=== PATIENT | female | born 1995 | race Two or more races ===

== ENCOUNTER 2024-12-05 10:30 | Outpatient (CLI) | payer OTHER, SELFPAY ==
--- OUTSIDE RECORDS SUMMARY | 2024-10-20 15:48 | XMS_ITS ---
Author Organization [facility] Address [address] [place] [address] Phone Care Team Providers Care Spindle Frame Carver Name Role Phone Donna Call MD Conditions or Problems Problem Name Problem Code Onset Date Status Entry Date Provider Comment Standard Description Annotate Urinalysis, abnormal [id number] (SNOMED CT) Resolved Donna Call MD Abnormal urinalysis [id number] (SNOMED CT) Resolved Donna Call MD Medications No information available. Medications Administered No information available. Allergies, Adverse Reactions, Alerts No information available. Results Date Name Value Unit Range Flag Description Office Visit: 21w2d [ ] [facility] HEL baseline & glucola & EDPS/3rd tri folder QUAD SCREEN yes quad scre en for Down Syndrome, Trisomy-18, and Spina Bifida, maternal serum HGB ELECTRO done hemoglobi n electrophoresis, blood Plan of Care Type Date Detail Appointment 01:00 PM Donna Del Rio, [address] [facility], [place], [phone], Procedures Code Procedure Name Date Entry Date CPT-1week Follow Up in 1 Week CPT-QRC Quick Recheck Vital Signs Date Name Value Unit Description Body Temperature 99.0 [degF] temperat ure E&M Body Temperature 37.22 Mariya temperat ure in centigrade E&M BP Diastolic 82 mm[Hg] blood pressu re, diastolic BP Diastolic 82 blood pressu re, diastolic, repeated by physician BP Diastolic 82 mm[Hg] blood pressu re, diastolic, second observation BP Systolic 130 mm[Hg] blood pressur e, systolic BP Systolic 130 blood pressur e, systolic, repeated by physician BP Systolic 130 mm[Hg] blood pressur e, systolic, second observation Heart Rate 102 /min pulse rate Height 66.34 [in_us] height E&M Height 168.50 cm height in cent imeters E&M Weight Measured 205 [lb_av] weight E& M Weight Measured 205 [lb_av] weight E& M Weight Measured 93.18 kg weight in kilograms E&M Immunizations No information available. Advance Directives No information available.
--- OUTSIDE RECORDS SUMMARY | 2024-11-12 09:28 | XMS_ITS ---
Glucola 184, CBC 10.6 & macrocytic, RPR/HIV neg Created on: November 12, 2024 Nereida Holland : 1995 Sex: Female Author Organization [facility] Address [address] [place] [address] Phone Care Team Providers Care Ambulatory Care Nurse Name Role Phone Oneyda GASTELUM, [facility] Conditions or Problems No information available. Medications No information available. Medications Administered No information available. Allergies, Adverse Reactions, Alerts No information available. Results Date Name Value Unit Range Flag Description Lab Report: Glucola 184, CBC 10.6 & macrocytic, RPR/HIV neg GLUCOLA TEST 184 70-139 HH Glucola test for gestational diabetes mellitus RPR Non Reactive Non Reactive Genet gin Ab [Units/volume] in Serum by VDRL IMM GRANU % 2 % Not Estab. Immatu re granulocytes/100 leukocytes in Blood BASO# 0.0 x10E3/uL 0.0-0.2 Basophil s [#/volume] in Blood EOS ABSLT 0.1 X10E3/UL 10*3/uL 0.0-0.4 Eosino phils [#/volume] in Blood MONOSCT AUTO 0.4 X10E3/UL 10*3/uL 0.1-0.9 Mon ocytes [#/volume] in Blood by Automated count LYMPHCT AUTO 1.2 X10E3/UL 10*3/mm3 0.7-3.1 Ly mphocytes [#/volume] in Blood by Automated count ABS NEUTROPH 6.0 X10E3/UL 10*3/uL 1.4-7.0 Thomas trophils [#/volume] in Blood BASOPHIL % 1 % Not Estab. Basophi ls/100 leukocytes in Blood by Manual count % EOS AUTO 2 % Not Estab. Eosinop hils/100 leukocytes in Blood by Automated count MONOCYTE % 5 % Not Estab. Monocyt es/100 leukocytes in Blood by Automated count LYMPHS % 15 % Not Estab. Lymphocyt es/100 leukocytes in Blood by Automated count PMN % 75 % Not Estab. Neutrophil s/100 leukocytes in Blood by Automated count PLATELETS 164 X10E3/UL 10*3/mm3 150-450 Plate lets [#/volume] in Blood by Automated count RDW 13.0 % 11.7-15.4 Erythrocyte distribution width [Ratio] by Automated count MCHC 31.1 G/DL 31.5-35.7 L MCHC [Mass/ volume] by Automated count MCH 31.3 pg 26.6-33.0 MCH [Entiti c mass] by Automated count MCV 101 fL 79-97 H MCV [Entitic volume] by Automated count HCT 34.1 % 34.0-46.6 Hematocrit [Volume Fraction] of Blood by Automated count HGB 10.6 g/dL 11.1-15.9 L Hemoglobin [Mass/volume] in Blood RBC 3.39 X10E6/UL 10*6/mm3 3.77-5.28 L Eryt hrocytes [#/volume] in Blood by Automated count WBC 7.9 X10E3/UL 10*3/mm3 3.4-10.8 Leukoc ytes [#/volume] in Blood by Automated count Plan of Care Type Date Detail Appointment 01:00 PM Donna Del Rio, [address] [place] [address], [phone], Procedures No information available. Vital Signs No information available. Immunizations No information available. Advance Directives No information available.
--- OUTSIDE RECORDS SUMMARY | 2024-11-12 23:59 | XMS_ITS ---
Author Organization [facility] Address [address] [place] [address] Phone Care Team Providers Care Business Analysis Consultant Name Role Phone Oneyda GASTELUM, Donna Robledo Conditions or Problems No information available. Medications No information available. Medications Administered No information available. Allergies, Adverse Reactions, Alerts No information available. Results No information available. Plan of Care Type Date Detail Appointment 01:00 PM Donna Del Rio, [address] [place] [address], [phone], Procedures No information available. Vital Signs No information available. Immunizations No information available. Advance Directives No information available.
--- OUTSIDE RECORDS SUMMARY | 2024-11-18 07:54 | XMS_ITS | Encounter Summary ---
Author Organization [facility] Care Address [address] [place] [address] Care Team Providers Care Gi Technician Name Role Phone [facility] Primary Care Provider Reason for Visit * Diagnostic Imaging (Routine) - Pending Review Specialty Diagnoses / Procedures Referred By Myriam t Referred To Contact Diagnoses , incidental (HHS-HCC) BMI 31.0-31.9,adult Procedures US OB Targeted 2nd/3rd Tri Single Gestation US OB Targeted 2nd/3rd Tri Single Gestation US OB Transabd 2nd/3rd Tri Single Gestation Allie Hanson MD [address] [place] [address] Phone: tel: fax: Referral ID Status Reason Start Date Expiration Date V isits Requested Visits Authorized [id number] Pending Review 09/30/2024 09/30/2025 1 1 Encounter Details Date Type Department Care Team (Latest Contact Info) Description 11/18/2024 7:54 AM EDT - 11/18/2024 11:59 PM EDT Hospital Encounter IMG OB [facility] [place] [address] [place] [phone] Allie Hanson MD [address] [place] [address] Nir Sanchez MD [address] [facility] Obstetrics & Gynecology #[address] [place] [address] , incidental (HHS-HCC); BMI 31.0-31.9,adult Discharge Disposition: [...] Routine 11/18/2024 8:42 AM EDT , incidental ([facility]) BMI 31.0-31.9,adult documented in this encounter Results [...] 20, BMI 31.0-31.9 - Other obesity Procedures 70290: Detailed OB Ultrasound Narrative 11/18/2024 8:58 AM [...] EFW (oz) 14 oz EFW by: Hadlock (BCM-UV-RS-FL) Extended CM 7.5 mm 83% Nicolaides Head / Face / Neck Cephalic index 0.77 32% Nicolaides Rt Broom Maker 4.5 mm Extremities / Bony Struc FL [...] normal LVOT view: normal 3-vessel view: normal 1-mgftqh-qsxfsmp view: normal Heart / Thorax Situs: situs [...] 63% Hadlock Femur45.3 mm25w 0d 23% Hadlock Cntswpz55.6 mm25w 4d 46% Patrick HC / AC1.11 [id number] g25w 4d 52% Lei EFW (lb)1 lb EFW (oz)14 oz EFW by:Hadlock (FVJ-BO-RD-FL) Extended CM7.5 mm 83% Nicolaides Head / Face / Neck Cephalic index0.77 32% Nicolaides Rt Vp4.5 mm Extremities / Bony Struc FL / BPD0.69 FL / HC0.19 FL / AC0.21 Other Structures IYU880 bpm General Evaluation Cardiac activity present. FHR [...] view:normal RVOT view:normal LVOT view:normal 3-vessel view:normal 3-ejinwu-dukeuih view:normal Heart / Thorax Situs:situs solitus (normal) [...] Than 20, BMI31.0-31.9 - Other obesity Procedures 34740: Detailed OB Ultrasound us Allie Hanson MD IMG US ORDERABLES Final Re sult documented in this encounter Visit Diagnoses Diagnosis , incidental ([facility]) state, incidental BMI 31.0-31.9,adult documented in this encounter Care Teams Gi Technician Relationship Specialty Start Date End Date [address] [address] PCP - General 07/22/24 documented as of this encounter
--- OUTSIDE RECORDS SUMMARY | 2024-11-18 23:59 | XMS_ITS ---
Author Organization [facility] Address [address] [place] [address] Phone Care Team Providers Care Sales Designer Name Role Phone Dl GASTELUM, Dianna Unavailable Conditions or Problems No information available. Medications No information available. Medications Administered No information available. Allergies, Adverse Reactions, Alerts No information available. Results No information available. Plan of Care Type Date Detail Appointment 01:00 PM Donna Del Rio, [address] [place] [address], [phone], Procedures No information available. Vital Signs No information available. Immunizations No information available. Advance Directives No information available.
--- OUTSIDE RECORDS SUMMARY | 2024-11-24 14:03 | XMS_ITS ---
Author Organization [facility] Address [address] [place] [address] Phone Care Team Providers Care Bariatric Physician Name Role Phone Oneyda GASTELUM, Donna Unavailable Conditions or Problems No information available. Medications No information available. Medications Administered No information available. Allergies, Adverse Reactions, Alerts No information available. Results Date Name Value Unit Range Flag Description Lab Report: 3hr GTT normal ( 1 single point of sugar high) GTT 3H 100G 114 mg/dL 70-139 blood glu cose, 3 hours after 100 gm oral glucose GTT 2H 100G 155 mg/dL 70-154 H blood glu cose, 2 hours after 100 gm oral glucose GTT 1H 100G 144 mg/dL 70-179 blood glu cose, 1 hour after 100 gm oral glucose BG FASTING 74 mg/dL 70-94 blood gluc ose, fasting Plan of Care Type Date Detail Appointment 01:00 PM Donna Del Rio, [address] [place] [address], [phone], Procedures No information available. Vital Signs No information available. Immunizations No information available. Advance Directives No information available.
--- OUTSIDE RECORDS SUMMARY | 2024-12-07 09:53 | XMS_ITS | Clinical Summary ---
Author Organization [facility] Care Address [address] [place] [address] Care Team Providers Care Hand Candle Molder Name Role Phone [facility] Primary Care Provider Source Comments In the event that these patient records contain information protected by 42 CFRpart 2 (i.e., would identify the patient as a substance abuser and was obtainedby a federally assisted substance abuse program to diagnose, refer fortreatment or treat the patient for substance abuse), please be advised of thefollowing: This information has been disclosed to you from records protected by Federalconfidentiality rules (42 CFR part 2). The Federal rules prohibit you frommaking any further disclosure of this information unless further disclosure isexpressly permitted by the written consent of the person to whom it pertains oras otherwise permitted by 42 CFR part 2. A general authorization for therelea se of medical or other information is NOT sufficient for this purpose.The Federal rules restrict any use of the information to criminally investigateor prosecute any alcohol or drug abuse patient. expressly permitted by the written consent of the person to whom it pertains or as otherwise permitted by 42 CFR part 2. A general authorization for the release of medical or other information is NOT sufficient for this purpose. The Federal rules restrict any use of the information to criminally investigate or prosecute any alcohol or drug abuse patient.[facility] Health Care Encounters Date Type Department Care Team Description 11/18/2024 7:54 AM EDT - 11/18/2024 11:59 PM EDT Hospital Encounter IMG [facility] [place] [address] Allie Hanson MD Goodnight, William Harold, MD , incidental ([facility]); BMI 31.0-31.9,adult Discharge Disposition: Home with Self Care 09/30/2024 Community Orders [facility] [address] [place] [address] Allie Hanson MD , incidental (HHS-HCC) (Primary Dx) from Last 3 Months Social History Tobacco Use Types Packs/Day Years [...] on file Sexual Orientation Not on file Plan of Treatment Health Maintenance Due Date Last Done Comments Hepatitis C Screen 2011 Pap Smear (21-65) 2014 DTaP/Tdap/Td Vaccines (7 - Td or Tdap) 01/30/2018 01/31/2008, 07/20/1997, 05/01/1994, Additional history exists COVID-19 Vaccine (2023- season) 2023 Influenza Vaccine (#1) 2024 03/06/2018 Pneumococcal Vaccine 0-49 Aged Out No longer eligible based on patient's age to complete this topic Procedures Procedure Name Priority Date/Time Associated Diagnosis Comments US OB TARGETED 2ND/3RD TRIMESTER SINGLE GESTATION Routine 11/18/2024 8:42 AM EDT , incidental (HHS-HCC) BMI 31.0-31.9,adult from Last 3 Months Results * US OB Targeted 2nd/3rd Tri [...] 20, BMI 31.0-31.9 - Other obesity Procedures 53445: Detailed OB Ultrasound Narrative 11/18/2024 8:58 AM [...] EFW (oz) 14 oz EFW by: Hadlock ([id number]) Extended CM 7.5 mm 83% Nicolaides Head / Face / Neck Cephalic index 0.77 32% Nicolaides Rt Technical Sales Manager 4.5 mm Extremities / Bony Struc FL [...] normal LVOT view: normal 3-vessel view: normal 3-dzilnb-mszsdks view: normal Heart / Thorax Situs: situs [...] 63% Hadlock Femur45.3 mm25w 0d 23% Hadlock Ehmqnis45.6 mm25w 4d 46% Patrick HC / AC1.11 SHV901 g25w 4d 52% Lei EFW (lb)1 lb EFW (oz)14 oz EFW by:Hadlock ([id number]-FL) Extended CM7.5 mm 83% Nicolaides Head / Face / Neck Cephalic index0.77 32% Nicolaides Rt Vp4.5 mm Extremities / Bony Struc FL / BPD0.69 FL / HC0.19 FL / AC0.21 Other Structures PHG280 bpm General Evaluation Cardiac activity present. FHR [...] view:normal RVOT view:normal LVOT view:normal 3-vessel view:normal 2-ybvmwb-jqfluao view:normal Heart / Thorax Situs:situs solitus (normal) [...] Than 20, BMI31.0-31.9 - Other obesity Procedures 03637: Detailed OB Ultrasound us Allie Hanson MD [facility] US ORDERABLES Final Re sult from Last 3 Months Insurance [facility] Care Teams Hand Candle Molder Relationship Specialty Start Date End Date [address] [phone] PCP - General 07/22/24
--- OUTSIDE RECORDS SUMMARY | 2024-12-07 09:53 | XMS_ITS | Encounter Summary ---
Author Organization [facility] Address [address] [place] [address] Care Team Providers Care Clinical Geneticist Name Role Phone [facility] Care Provider Reason for Referral * Diagnostic Imaging (Routine) - Pending Review Specialty Diagnoses / Procedures Referred By Contac t Referred To Contact Diagnoses state, incidental (HHS-HCC) Procedures US OB Less Than 14 Wks Transabd 1st Tri Single Gest Allie Hanson MD [address] [place] [address] Phone: tel: fax: Referral ID Status Reason Start Date Expiration Date V isits Requested Visits Authorized [id number] Pending Review 07/20/2024 07/20/2025 1 0 Encounter Details Date Type Department Care Team (Late st Contact Info) Description 07/20/2024 Community Orders [facility] [address] [place] [address] Allie Hanson MD [address] [place], [place] [id number] state, incidental (HHS-HCC) (Primary Dx) Social History Tobacco Use Types Packs/Day Years [...] any substance for non-medical reasons? No 07/21/2024 Comments Unknown Sex and Gender Information Value Date Recorded Sex Assigned at Not on file Legal Sex Female 12:09 PM EST Gender Identity Not on file Sexual Orientation Not on file documented as of this encounter Plan of Treatment Not on file documented as of this encounter Results * US OB Less Than 14 Wks Transabd 1st Tri Single Gest (07/22/2024 2:29 PM EDT) Anatomical Region Laterality Modality Pelvis Ultrasound 07/22/2024 2:13 PM EDT Impressions 07/22/2024 3:34 PM EDT An early intrauterine jules is visualized. Anatomic survey is precluded by early gestational age. Follow up imaging was not scheduled at this time. Thank you for this referral. Coding ====== Diagnoses O36.80X0: with inconclusive viability Procedures 73430: 1st Trimester Ultrasound Narrative 07/22/2024 3:34 PM EDT Indication ======== Confirmation of intrauterine . Confirmation of cardiac activity. Confirmation of cardiac activity. Method ====== Transabdominal ultrasound examination. View: Good view. ========= Jules . Number of embryos: 1 Dating ====== LMP on: 05/24/2024 Cycle: regular cycle GA by LMP 8 w + 3 d ORTEGA by LMP: 02/28/2025 Ultrasound examination on: 07/22/2024 GA by U/S based upon: CRL GA by U/S 8 w + 4 d ORTEGA by U/S: 02/27/2025 Assigned: based on the LMP, selected on 07/22/2024 Assigned GA (weeks days) 8 w + 3 d Assigned ORTEGA: 02/28/2025 Assessment Gestational sac: visualized Location: intrauterine Yolk sac: visualized YS 3.3 mm -2.4SD Grisolia Embryo: visualized CRL 19.6 mm 8w 4d 85% Hadlock Cardiac activity: present FHR 179 bpm Other: Subchorionic bleed seen inferior to gestational sac measures 23 x 9 x 10mm, patient denies bleeding. General Evaluation Cardiac activity present Amniotic fluid: normal amount Biometry Standard FHR 179 bpm CRL 19.6 mm 8w 4d 85% Hadlock Extended YS 3.3 mm -2.4SD Grisolia Maternal Structures Uterus / Cervix Uterus: Normal Uterus position: anteverted Fibroids: No fibroids identified Cervix: Normal Ovaries / Tubes / Adnexa Rt ovary: Normal Rt ovary D1 27 mm Rt ovary D2 25 mm Rt ovary D3 17 mm Rt ovary Vol 5.9 cm? Rt ovarian cyst(s): No cysts identified Lt ovary: Normal Lt ovary D1 42 mm Lt ovary D2 39 mm Lt ovary D3 30 mm Lt ovary Vol 25.4 cm? Lt ovarian cyst(s): Cysts identified Lt ovarian cyst description: Simple cyst Lt ovarian cyst D1 23 mm Lt ovarian cyst D2 25 mm Lt ovarian cyst D3 27 mm Lt ovarian cyst mean 25.0 mm Lt ovarian cyst vol 8.153 cm? Cul de Sac / Bladder / Kidneys / Other Cul de Sac: Normal Free fluid: No free fluid visualized Procedure Note Nir Sanchez MD - 07/22/2024 Indication ======== Confirmation of intrauterine . Confirmation of cardiac activity.Confirmation of cardiac activity. Method ====== Transabdominal ultrasound examination. View: Good view. ========= Jules . Number of embryos: 1 Dating ====== LMP on:05/24/2024 Cycle:regular cycle GA by LMP8 w + 3 d ORTEGA by LMP:02/28/2025 Ultrasound examination on:07/22/2024 GA by U/S based upon:CRL GA by U/S8 w + 4 d ORTEGA by U/S:02/27/2025 Assigned:based on the LMP, selected on 07/22/2024 Assigned GA (weeks days)8 w + 3 d Assigned ORTEGA:02/28/2025 Assessment Gestational sac:visualized Location:intrauterine Yolk sac:visualized YS3.3 mm -2.4SD Grisolia Embryo:visualized CRL19.6 mm8w 4d 85% Hadlock Cardiac activity:present MNL398 bpm Other:Subchorionic bleed seen inferior to gestational sac measures 23 x 9x 10mm, patient denies bleeding. General Evaluation Cardiac activity present Amniotic fluid: normal amount Biometry Standard AMM215 bpm CRL19.6 mm8w 4d 85% Hadlock Extended YS3.3 mm -2.4SD Grisolia Maternal Structures Uterus / Cervix Uterus:Normal Uterus position:anteverted Fibroids:No fibroids identified Cervix:Normal Ovaries / Tubes / Adnexa Rt ovary:Normal Rt ovary D127 mm Rt ovary D225 mm Rt ovary D317 mm Rt ovary Vol5.9 cm? Rt ovarian cyst(s):No cysts identified Lt ovary:Normal Lt ovary D142 mm Lt ovary D239 mm Lt ovary D330 mm Lt ovary Vol25.4 cm? Lt ovarian cyst(s):Cysts identified Lt ovarian cyst description:Simple cyst Lt ovarian cyst D123 mm Lt ovarian cyst D225 mm Lt ovarian cyst D327 mm Lt ovarian cyst mean25.0 mm Lt ovarian cyst vol8.153 cm? Cul de Sac / Bladder / Kidneys / Other Cul de Sac:Normal Free fluid:No free fluid visualized IMPRESSION: An early intrauterine jules is visualized. Anatomic surveyis precluded by early gestational age. Follow up imaging was not scheduled at this time. Thank you for this referral. Coding ====== Diagnoses O36.80X0: with inconclusive fetalviability Procedures 47140: 1st Trimester Ultrasound us Allie Hanson MD G US ORDERABLES Final Re sult documented in this encounter Visit Diagnoses Diagnosis state, incidental ([facility])- Primary state, incidental state, incidental ([facility]) state, incidental documented in this encounter Care Teams Clinical Geneticist Relationship Specialty Start Date End Date [facility] [phone] PCP - General 07/22/24 documented as of this encounter
--- OUTSIDE RECORDS SUMMARY | 2024-12-07 09:53 | XMS_ITS | Clinical Summary ---
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 CPT-02091 - Urine CPT-54304FC UniGold finger stick CPT-35146.1 RPR, Rfx Qn RPR/Confirm TP-PA LC 457238 $ 4.15 CPT-80632 N gonorrhoeae DNA Probe with Reflex LC 16 4210 $5 CPT-48375 Chlamydia DNA Probe with Reflex LC 037802 $5 CPT-91473 Thyroid Stimulating Hormone (TSH) LC 0042 59 $6.15 CPT-3months Follow Up in 3 Months 12/13 CPT-102 102 Never tested CPT-22505 Hepatitis A 12 months - 18 years (Check I ns Status) CPT-68100 Meningococcal 11 - 1 8 years (Check Insurance Status) CPT-09074 - Urine CPT-J1055 Depo-Provera 150mg IM 08/30 CPT-3months Follow Up in 3 Months 08/30 CPT-61049 Urology Consult CPT-17687.9 Influenza - Adults (19 or older) CPT-55899 Hemoglobin CPT-39159 HPV 9 - 18 years (Check Insurance Status) CPT-55033 Pediatric Uroogy Consult 200 12/29/04 CPT-35354 1 Shot CPT-excuse Excuse for Today CPT-79203 HPV 9 - 18 years (Check Insurance Status) CPT-69837 Metabolic Panel, Basic 239162 $3.90 20 12/22/28 CPT-19292 Thyroid Stimulating Hormone (TSH) 0042 59 $6.15 CPT-36706 CBC with Differential/Platlet 447515 $ 3.85 Vital Signs Date Name Value Unit Description Body Temperature 99.0 [degF] temperat ure E&M Body Temperature 37.22 Mariya temperat ure in centigrade E&M BP Diastolic 82 mm[Hg] blood pressu re, diastolic BP Diastolic 82 blood pressu re, diastolic, repeated by physician BP Diastolic 82 mm[Hg] blood pressu re, diastolic, second observation BP Systolic 130 mm[Hg] blood pressur e, systolic, second observation BP Systolic 130 mm[Hg] blood pressur e, systolic BP Systolic 130 blood pressur e, systolic, repeated by physician Heart Rate 102 /min pulse rate Height 66.34 [in_us] height E&M Height 168.50 cm height in cent imeters E&M Weight Measured 205 [lb_av] weight E& M Weight Measured 205 [lb_av] weight E& M Weight Measured 93.18 kg weight in kilograms E&M Inhaled O2 Room air L/min oxygen flow ra te BMI (Body Mass Index) 31.01 kg/m2 Bod y Mass Index (Ratio) Respiratory Rate 18 /min respirat ory rate E&M Immunizations Vaccine Administration Date Standard Description CVX Co de Dose Flu vax Flu vax 88 0.5 cc Advance Directives Directive Description Start Date HIV TESTING DONE: 06/20/2011 HIV TESTING DONE: 12/13/2009
--- OUTSIDE RECORDS SUMMARY | 2024-12-07 09:53 | XMS_ITS | Clinical Summary ---
Author Organization [facility] Address [address] [place] [address] Care Team Providers Care Dry Cleaner Hand Name Role Phone Provider Primary Care Provider Unavailabl e Allergies No known active allergies Medications biotin 1 mg Cap Take by mouth Active folic acid (FOLVITE) 1 MG tablet Take 1 mg by mouth once daily Active multivitamin tablet Take 1 tablet by mouth once daily Active cinnamon bark (CINNAMON) 500 mg capsule Take 500 mg by mouth once daily Active cranberry 400 mg Cap Take by mouth Active Active Problems Problem Noted Date Diagnosed Date Myopia of both eyes 11/24/2018 Family History Medical History Relation Comments No Known Problems Brother No Known Problems Father No Known Problems Mother No Known Problems Sister Relation Status Comments Brother Father Mother Sister Social History Tobacco Use Types Packs/Day Years Used Date Smoking Tobacco: Never Smokeless Tobacco: Never Tobacco Cessation:Counseling Given: No Comments Unknown Sex and Gender Information Value Date Recorded Sex Assigned at Not on file Legal Sex Female 11:28 AM EST Gender Identity Not on file Sexual Orientation Not on file Plan of Treatment Health Maintenance Due Date Last Done Comments HIV Screen 1993 Hepatitis C Screen 1993 Lipid Panel 1993 Pap Smear 1993 Annual Physical/Well Child Check 01/06/1996 Depression Screening 2004 Varicella Vaccines (1 of 2 - 13+ 2-dose series) 2006 Adult Tetanus (Td And Tdap) 2011 HPV Vaccines (1 - 3-dose SCD M series) 2020 COVID-19 Vaccine (2023-2 5 season) 2023 Influenza Vaccine (#1) 2024 03/06/2018 Hepatitis A Vaccines Aged Out No long er eligible based on patient's age to complete this topic Hib Vaccines Aged Out No longer eligi ble based on patient's age to complete this topic Meningococcal ACWY Vaccine Aged Out N o longer eligible based on patient's age to complete this topic Meningococcal B Vaccine Aged Out No l onger eligible based on patient's age to complete this topic Pneumococcal Vaccine Aged Out No long er eligible based on patient's age to complete this topic Care Teams Dry Cleaner Hand Relationship Specialty Start Date End Date Provider PCP - General 11/24/18
--- OUTSIDE RECORDS SUMMARY | 2024-12-07 09:53 | XMS_ITS | Encounter Summary ---
Author Organization [facility] Address [address] [place] [id number] Care Team Providers Care Certified Health Education Specialist Name Role Phone [facility] Primary Care Provider Encounter Details Date Type Department Care Team (Late st Contact Info) Description 09/30/2024 [facility] [address] [place] [address] Allie Hanson MD [address] [place] [address] , incidental ([facility]) (Primary Dx) Social History Tobacco Use Types [...] on file documented as of this encounter Visit Diagnoses Diagnosis , incidental ([facility] Primary state, incidental documented in this encounter Care Teams Certified Health Education Specialist Relationship Specialty Start Date End Date [facility] [address] [place] [address] PCP - General 07/22/24 documented as of this encounter
== END 2024-12-05 23:59 | disposition home or self-care (01) ==
LOC: LAB.DROPOF 12-07 09:42
PROVIDERS: PCP Obstetrics & Gynecology; Visit Provider Obstetrics & Gynecology
DX: Z34.93 Encounter for supervision of normal pregnancy, unspecified, third trimester (principal)
CPT/HCPCS: 87086

== ENCOUNTER 2024-12-29 09:11 | Outpatient (CLI) | payer BC, SELFPAY ==
--- OUTSIDE RECORDS SUMMARY | 2024-11-12 09:28 | XMS_ITS ---
Glucola 184, CBC 10.6 & macrocytic, RPR/HIV neg Created on: November 12, 2024 Nereida Holland : 1995 Sex: Female Author Organization [facility] Address [address] [place] [address] Phone Care Team Providers Care Bid Manager Name Role Phone Oneyda GASTELUM, [facility] Conditions or Problems No information available. [...]
--- OUTSIDE RECORDS SUMMARY | 2024-11-12 23:59 | XMS_ITS ---
Author Organization [facility] Address [address] [place] [address] Phone Care Team Providers Care Therapeutic Specialist Name Role Phone Oneyda GASTELUM, [facility] Conditions or Problems No information available. Medications No information available. Medications Administered No information available. Allergies, Adverse Reactions, Alerts No information available. Results No information available. Plan of Care No information available. Procedures No information available. Vital Signs No information available. Immunizations No information available. Advance Directives No information available.
--- OUTSIDE RECORDS SUMMARY | 2024-11-18 07:54 | XMS_ITS | Encounter Summary ---
Author Organization [facility] Care Address [address] [place] [address] Care Team Providers Care Tobacco Cutter Name Role Phone [facility] Primary Care Provider Reason for Visit * Diagnostic Imaging (Routine) - Pending Review Specialty Diagnoses / Procedures Referred By Myriam t Referred To Contact Diagnoses , incidental (HHS-HCC) BMI 31.0-31.9,adult Procedures US OB Targeted 2nd/3rd Tri Single Gestation US OB Targeted 2nd/3rd Tri Single Gestation US OB Transabd 2nd/3rd Tri Single Gestation Allie Hanson MD [address] [place] [address] Phone: tel: fax: Referral ID Status Reason Start Date Expiration Date V isits Requested Visits Authorized [id number] Pending Review 09/30/2024 09/30/2025 1 1 Encounter Details Date Type Department Care Team (Latest Contact Info) Description 11/18/2024 7:54 AM EDT - 11/18/2024 11:59 PM EDT Hospital Encounter IMG OB [facility] [place] [address] [place] [phone] Allie Hanson MD [address] [place] [address] Nir Sanchez MD [address] [facility] Obstetrics & Gynecology #[id number] [place] [address] , incidental (HHS-HCC); BMI 31.0-31.9,adult Discharge Disposition: Home with Self Care Social History Tobacco Use Types Packs/Day Years Used Date Smoking Tobacco: Never Assessed Substance Use Answer Date Recorded In the past year, how often have you used prescription drugs for non-medical reasons? Not on file 07/21/2024 In the past year, how often have you used illega l drugs? Not on file 07/21/2024 In the past year, have you u sed any substance for non-medical reasons? No 07/21/2024 Estimated Date of Delivery Comme nts Yes 02/28/2025 Based on last me nstrual period of 05/24/2024 Sex and Gender Information Value Date Recorded Sex Assigned at Not on file Legal Sex Female 12:09 PM EST Gender Identity Not on file Sexual Orientation Not on file documented as of this encounter Plan of Treatment Not on file documented as of this encounter Procedures Procedure Name Priority Date/Time Associated Diagnosis Comments US OB TARGETED 2ND/3RD TRIMESTER SINGLE GESTATION Routine 11/18/2024 8:42 AM EDT , incidental ([facility]) BMI 31.0-31.9,adult documented in this encounter Results * US OB Targeted 2nd/3rd Tri Single Gestation (11/18/2024 8:42 AM EDT) Anatomical Region Laterality Modality Pelvis Ultrasound 11/18/2024 8:13 AM EDT Impressions 11/18/2024 8:58 AM EDT Comprehensive anatomical ultrasound A single viable intrauterine gestation is identified on today's US. Biometry is consistent with the established EGA. The amniotic fluid volume appears normal. Detailed anatomical evaluation was performed. Within the limitations of ultrasound, no anomalies were visualized. Follow up was not ordered. The patient will follow up as clinically indicated per primary provider. Thank you for this referral. Coding ====== Diagnoses E66.8: Obesity, Age Greater Than 20, BMI 31.0-31.9 - Other obesity Procedures 16253: Detailed OB Ultrasound Narrative 11/18/2024 8:58 AM EDT Indication ======== Detailed Anatomical Screening: BMI 31 patient reports low risk cfDNA. Method ====== Transabdominal ultrasound examination. View: Good view. ========= Morgan . Number of fetuses: 1 Dating ====== LMP on: 05/24/2024 Cycle: regular cycle GA by LMP 25 w + 3 d ORTEGA by LMP: 02/28/2025 Ultrasound examination on: 11/18/2024 GA by U/S based upon: AC, BPD, Femur, HC, Humerus GA by U/S 25 w + 6 d ORTEGA by U/S: 02/25/2025 Assigned: based on the LMP, selected on 11/18/2024 Assigned GA (weeks days) 25 w + 3 d Assigned ORTEGA: 02/28/2025 Growth Overview Exam date GA BPD (mm) HC (mm) AC (mm) FL (mm) HL (mm) EFW (g) 11/18/2024 25w 3d 65.5 76% 239.9 60% 216.4 63% 45.3 23% 42.6 46% 845 52% Biometry Standard BPD 65.5 mm 26w 3d 76% Hadlock OFD 85.1 mm 27w 4d 96% Patrick HC 239.9 mm 25w 6d 60% Chervenak Cerebellum tr 29.2 mm 26w 6d 70% Woodall AC 216.4 mm 26w 1d 63% Hadlock Femur 45.3 mm 25w 0d 23% Hadlock Humerus 42.6 mm 25w 4d 46% Patrick HC / AC 1.11 EFW 845 g 25w 4d 52% Lei EFW (lb) 1 lb EFW (oz) 14 oz EFW by: Hadlock (ORA-KR-OJ-FL) Extended CM 7.5 mm 83% Nicolaides Head / Face / Neck Cephalic index 0.77 32% Nicolaides Rt Paraffin Plant Operator 4.5 mm Extremities / Bony Struc FL / BPD 0.69 FL / HC 0.19 FL / AC 0.21 Other Structures FHR 135 bpm General Evaluation Cardiac activity present. FHR 135 bpm. movements: visualized. Presentation: cephalic Placenta: Placental site: anterior Umbilical cord: Insertion site: normal insertion, 3 vessel cord Amniotic fluid: Amount of AF: normal. MVP 4.1 cm. RENEE 13.9 cm. Q1 3.8 cm, Q2 2.3 cm, Q3 4.1 cm, Q4 3.6 cm Anatomy Cranium: normal Lateral ventricles: normal Choroid plexus: normal Midline falx: normal Cavum septi pellucidi: normal Cerebellum: normal Cisterna magna: normal Head / Neck Head shape: normal Rt lateral ventricle: normal Lt lateral ventricle: normal Parenchyma: normal Thalami: normal Posterior fossa: normal Cerebellar lobes: normal Vermis: normal Neck: normal Lips: normal Profile: normal Nose: normal Face Orbits: normal Lenses: normal 4-chamber view: normal RVOT view: normal LVOT view: normal 3-vessel view: normal 8-prqkwv-zhjokad view: normal Heart / Thorax Situs: situs solitus (normal) Aortic arch view: normal Bicaval view: normal Ductal arch view: normal Cardiac position: levocardia (normal) Cardiac axis: normal Rt lung: normal Lt lung: normal Diaphragm: normal Cord insertion: normal Stomach: normal Kidneys: normal Bladder: normal Genitals: normal Abdomen Abdom. wall: normal Cervical spine: normal Thoracic spine: normal Lumbar spine: normal Sacral spine: normal Rt arm: normal Lt arm: normal Rt hand: normal Lt hand: normal Rt leg: normal Lt leg: normal Rt foot: normal Lt foot: normal Maternal Structures Uterus / Cervix Cervix: Normal Cervix details: transabdominal cervical length is > 35 mm Ovaries / Tubes / Adnexa Rt ovary: Normal Rt ovary D1 37 mm Rt ovary D2 27 mm Rt ovary D3 20 mm Rt ovary Vol 10.4 cm? Lt ovary: Normal Lt ovary D1 25 mm Lt ovary D2 26 mm Lt ovary D3 22 mm Lt ovary Vol 7.3 cm? Procedure Note Nir Sanchez MD - 11/18/2024 Indication ======== Detailed Anatomical Screening: BMI 31 patient reports low risk cfDNA. Method ====== Transabdominal ultrasound examination. View: Good view. ========= Morgan . Number of fetuses: 1 Dating ====== LMP on:05/24/2024 Cycle:regular cycle GA by LMP25 w + 3 d ORTEGA by LMP:02/28/2025 Ultrasound examination on:11/18/2024 GA by U/S based upon:AC, BPD, Femur, HC, Humerus GA by U/S25 w + 6 d ORTEGA by U/S:02/25/2025 Assigned:based on the LMP, selected on 11/18/2024 Assigned GA (weeks days)25 w + 3 d Assigned ORTEGA:02/28/2025 Growth Overview Exam date GA BPD (mm) HC (mm) AC(mm) FL (mm) HL (mm) EFW (g) 11/18/2024 25w 3d 65.5 76% 239.9 60%216.4 63% 45.3 23% 42.6 46% 845 52% Biometry Standard BPD65.5 mm26w 3d 76% Hadlock OFD85.1 mm27w 4d 96% Patrick HC239.9 mm25w 6d 60% Chervenak Cerebellum tr29.2 mm26w 6d 70% Woodall AC216.4 mm26w 1d 63% Hadlock Femur45.3 mm25w 0d 23% Hadlock Iholvtq72.6 mm25w 4d 46% Patrick HC / AC1.11 [id number] g25w 4d 52% Lei EFW (lb)1 lb EFW (oz)14 oz EFW by:Hadlock (XCH-ZF-SJ-FL) Extended CM7.5 mm 83% Nicolaides Head / Face / Neck Cephalic index0.77 32% Nicolaides Rt Vp4.5 mm Extremities / Bony Struc FL / BPD0.69 FL / HC0.19 FL / AC0.21 Other Structures UDK857 bpm General Evaluation Cardiac activity present. FHR 135 bpm. movements: visualized.Presentation: cephalic Placenta: Placental site: anterior Umbilical cord: Insertion site: normal insertion, 3 vessel cord Amniotic fluid: Amount of AF: normal. MVP 4.1 cm. RENEE 13.9 cm. Q1 3.8 cm,Q2 2.3 cm, Q3 4.1 cm, Q4 3.6 cm Anatomy Cranium:normal Lateral ventricles:normal Choroid plexus:normal Midline falx:normal Cavum septi pellucidi:normal Cerebellum:normal Cisterna magna:normal Head / Neck Head shape:normal Rt lateral ventricle:normal Lt lateral ventricle:normal Parenchyma:normal Thalami:normal Posterior fossa:normal Cerebellar lobes:normal Vermis:normal Neck:normal Lips:normal Profile:normal Nose:normal Face Orbits:normal Lenses:normal 4-chamber view:normal RVOT view:normal LVOT view:normal 3-vessel view:normal 6-gdazoq-grrwxjo view:normal Heart / Thorax Situs:situs solitus (normal) Aortic arch view:normal Bicaval view:normal Ductal arch view:normal Cardiac position:levocardia (normal) Cardiac axis:normal Rt lung:normal Lt lung:normal Diaphragm:normal Cord insertion:normal Stomach:normal Kidneys:normal Bladder:normal Genitals:normal Abdomen Abdom. wall:normal Cervical spine:normal Thoracic spine:normal Lumbar spine:normal Sacral spine:normal Rt arm:normal Lt arm:normal Rt hand:normal Lt hand:normal Rt leg:normal Lt leg:normal Rt foot:normal Lt foot:normal Maternal Structures Uterus / Cervix Cervix:Normal Cervix details:transabdominal cervical length is > 35 mm Ovaries / Tubes / Adnexa Rt ovary:Normal Rt ovary D137 mm Rt ovary D227 mm Rt ovary D320 mm Rt ovary Vol10.4 cm? Lt ovary:Normal Lt ovary D125 mm Lt ovary D226 mm Lt ovary D322 mm Lt ovary Vol7.3 cm? IMPRESSION: Comprehensive anatomical ultrasound A single viable intrauterine gestation is identified on today's US.Biometry is consistent with the established EGA. The amniotic fluid volume appears normal. Detailed anatomical evaluation was performed. Within the limitations ofultrasound, no anomalies were visualized. Follow up was not ordered. The patient will follow up as clinicallyindicated per primary provider. Thank you for this referral. Coding ====== Diagnoses E66.8: Obesity, Age Greater Than 20, BMI31.0-31.9 - Other obesity Procedures 99076: Detailed OB Ultrasound us Allie Hanson MD IMG US ORDERABLES Final Re sult documented in this encounter Visit Diagnoses Diagnosis , incidental ([facility]) state, incidental BMI 31.0-31.9,adult documented in this encounter Care Teams Tobacco Cutter Relationship Specialty Start Date End Date [address] [address] PCP - General 07/22/24 documented as of this encounter
--- OUTSIDE RECORDS SUMMARY | 2024-11-18 23:59 | XMS_ITS ---
Author Organization [facility] Address [address] [place] [address] Phone Care Team Providers Care Youth Accommodation Support Worker Name Role Phone Dl GASTELUM, [facility] Unavailable Conditions or Problems No information available. Medications No information available. Medications Administered No information available. Allergies, Adverse Reactions, Alerts No information available. Results No information available. Plan of Care No information available. Procedures No information available. Vital Signs No information available. Immunizations No information available. Advance Directives No information available.
--- OUTSIDE RECORDS SUMMARY | 2024-11-24 14:03 | XMS_ITS ---
Author Organization [facility] Address [address] [place] [address] Phone Care Team Providers Care Brine Tank Operator Name Role Phone Oneyda GASTELUM, [facility] Conditions or Problems No information available. [...] blood gluc ose, fasting Plan of Care No information available. Procedures No information available. Vital Signs No information available. Immunizations No information available. Advance Directives No information available.
[2024-12-29 09:23] LABS: Hematocrit 30.2 % (37.0-47.0); Hemoglobin 9.9 g/dL (12.2-16.2); Mean Corpuscular HGB Conc 32.8 g/dL (31.8-35.4); Mean Corpuscular Hemoglobin 31.5 pg (27.0-31.2); Mean Corpuscular Volume 96.2 fl (81-99); Platelet Count 147 K/mm3 (142-424); Red Blood Count 3.14 M/mm3 (4.20-5.40); White Blood Count 7.7 K/mm3 (4.8-10.8)
--- OUTSIDE RECORDS SUMMARY | 2024-12-29 09:33 | XMS_ITS | Clinical Summary ---
Author Organization [facility] Address [address] [place] [address] Care Team Providers Care Senior Fund Accountant Name Role Phone [facility] Primary Care Provider Source Comments In the [...] or prosecute any alcohol or drug abuse patient.[facility] Health Care Encounters Date Type Department Care Team Description 11/18/2024 7:54 AM EDT - 11/18/2024 11:59 PM EDT Hospital Encounter IMG [facility] [place] [address] Allie Hanson MD Goodnight, William Harold, MD , incidental ([facility]); BMI 31.0-31.9,adult Discharge Disposition: Home with Self Care 09/30/2024 Community Orders [facility] [address] [place] [address] Allie Hanson MD , incidental [...] 07/20/1997, 05/01/1994, Additional history exists COVID-19 Vaccine ( season) 2024 Influenza Vaccine (#1) 2024 03/06/2018 Pneumococcal Vaccine [...] 20, BMI 31.0-31.9 - Other obesity Procedures 87946: Detailed OB Ultrasound Narrative 11/18/2024 8:58 AM [...] EFW (oz) 14 oz EFW by: Hadlock ([id number]) Extended CM 7.5 mm 83% Nicolaides Head / Face / Neck Cephalic index 0.77 32% Nicolaides Rt Clinic Assistant 4.5 mm Extremities / Bony Struc FL [...] normal LVOT view: normal 3-vessel view: normal 9-bvmpcu-thsrxja view: normal Heart / Thorax Situs: situs [...] 63% Hadlock Femur45.3 mm25w 0d 23% Hadlock Bzaxuqs25.6 mm25w 4d 46% Patrick HC / AC1.11 RHZ401 g25w 4d 52% Lei EFW (lb)1 lb EFW (oz)14 oz EFW by:Hadlock ([id number]) Extended CM7.5 mm 83% Nicolaides Head / Face / Neck Cephalic index0.77 32% Nicolaides Rt Vp4.5 mm Extremities / Bony Struc FL / BPD0.69 FL / HC0.19 FL / AC0.21 Other Structures OJF011 bpm General Evaluation Cardiac activity present. FHR [...] view:normal RVOT view:normal LVOT view:normal 3-vessel view:normal 6-mmdjuk-uomrefi view:normal Heart / Thorax Situs:situs solitus (normal) [...] Than 20, BMI31.0-31.9 - Other obesity Procedures 22918: Detailed OB Ultrasound us Allie Hanson MD [facility] US ORDERABLES Final Re sult from Last 3 Months Insurance [facility] Care Teams Senior Fund Accountant Relationship Specialty Start Date End Date [address] [id number] PCP - General 07/22/24
--- OUTSIDE RECORDS SUMMARY | 2024-12-29 09:33 | XMS_ITS | Clinical Summary ---
Author Organization [facility] Address [address] [place] [address] Care Team Providers Care Operations Controller Name Role Phone Provider Primary Care Provider [...] series) 2020 COVID-19 Vaccine (2023-2 5 season) 2024 Influenza Vaccine (#1) 2024 03/06/2018 Hepatitis A [...] age to complete this topic Care Teams Operations Controller Relationship Specialty Start Date End Date Provider PCP - General 11/24/18
--- OUTSIDE RECORDS SUMMARY | 2024-12-29 09:33 | XMS_ITS | Encounter Summary ---
Author Organization [facility] Address [address] [place] [address] Care Team Providers Care Engineering And Development Director Name Role Phone [facility] Care Provider Reason for Referral * Diagnostic Imaging (Routine) - Pending Review Specialty Diagnoses / Procedures Referred By Contac t Referred To Contact Diagnoses state, incidental ([facility]) Procedures US OB Less Than 14 Wks Transabd 1st Tri Single Gest Allie Hanson MD [address] [place] [address] Phone: tel: fax: Referral ID Status Reason Start Date Expiration Date V isits Requested Visits Authorized [id number] Pending Review 07/20/2024 07/20/2025 1 0 Encounter Details Date Type Department Care Team (Late st Contact Info) Description 07/20/2024 Community Orders [facility] [address] [place] [address] Allie Hanson MD [address] [place], [place] [id number] state, incidental ([facility]) (Primary Dx) Social History [...] ====== Diagnoses O36.80X0: with inconclusive viability Procedures 17528: 1st Trimester Ultrasound Narrative 07/22/2024 3:34 PM [...] CRL19.6 mm8w 4d 85% Hadlock Cardiac activity:present RFK031 bpm Other:Subchorionic bleed seen inferior to gestational sac measures 23 x 9x 10mm, patient denies bleeding. General Evaluation Cardiac activity present Amniotic fluid: normal amount Biometry Standard VXP816 bpm CRL19.6 mm8w 4d 85% Hadlock Extended [...] ====== Diagnoses O36.80X0: with inconclusive fetalviability Procedures 51974: 1st Trimester Ultrasound us Allie Hanson MD G US ORDERABLES Final Re sult documented in this encounter Visit Diagnoses Diagnosis state, incidental ([facility] Primary state, incidental state, incidental ([facility]) state, incidental documented in this encounter Care Teams Engineering And Development Director Relationship Specialty Start Date End Date [facility] [phone] PCP - General 07/22/24 documented as of this encounter
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
--- OUTSIDE RECORDS SUMMARY | 2024-12-29 09:34 | XMS_ITS | Clinical Summary ---
Author Organization [facility] Address [address] [facility] [place] [address] Care Team Providers Care Tea Bag Machine Tender Name Role Phone Unavailable Primary Care Provider Unavailabl e Social History Tobacco Use Types Packs/Day Years Used Date Smoking Tobacco: Never Assessed Comments Unknown Sex and Gender Information Value Date Recorded Sex Assigned at Not on file Legal Sex Female 9:58 AM EST Gender Identity Not on file Sexual Orientation Not on file Plan of Treatment Health Maintenance Due Date Last Done Comments Pap Smear 1993 DTaP/Tdap/Td Vaccines (1 - Tdap) 2012 COVID-19 Vaccine (2023-2 5 season) 2023 Zoster Vaccine (1 of 2) 2043 HPV Vaccine (No Doses Required) Completed Hepatitis A Vaccine Aged Out No longe r eligible based on patient's age to complete this topic Meningococcal B Vaccine Aged Out No l onger eligible based on patient's age to complete this topic Meningococcal Conjugate Vaccine Aged Out No longer eligible based on patient's age to complete this topic Pneumococcal Vaccine: Pediat rics and At Risk Patients Aged Out No longer eligible based on patient's age to complete this topic
--- OUTSIDE RECORDS SUMMARY | 2024-12-29 09:34 | XMS_ITS | Encounter Summary ---
Author Organization [facility] Address [address] [place] [address] Care Team Providers Care Inventory Representative Name Role Phone [facility] Primary Care Provider Encounter Details Date Type Department Care Team (Late st Contact Info) Description 09/30/2024 Community [facility] [address] [place] [address] Allie Hanson MD [address] [place] [address] , incidental ([facility]) (Primary Dx) Social History Tobacco Use Types [...] this encounter Visit Diagnoses Diagnosis , incidental ([facility])- Primary state, incidental documented in this encounter Care Teams Inventory Representative Relationship Specialty Start Date End Date [facility] [address] [place] [address] PCP - General 07/22/24 documented as of this encounter
[2024-12-29 09:51] LABS: Alanine Aminotransferase 28 U/L (12-78); Albumin Level 3.3 g/dl (3.5-5.0); Albumin/Globulin Ratio 1.2 (1.1-1.8); Alkaline Phosphatase 77 U/L (38-126); Anion Gap 6.2 mEq/L (5-15); Aspartate Amino Transferase 26 U/L (14-36); Bilirubin,Total 0.2 mg/dl (0.2-1.3); Blood Urea Nitrogen 9 mg/dl (7-17); Calcium 9.2 mg/dl (8.4-10.2); Carbon Dioxide 26 mmol/L (22.0-30.0); Chloride 105 mmol/L (98-107); Creatinine,Serum 0.60 mg/dl (0.52-1.04); Estimated Glomerular Filt Rate 117 ml/min (>60); GFR (African American) 141 ML/MIN (>60); Globulin 2.7 g/dL (1.3-3.2); Glucose 143 mg/dl (74-100); Potassium 3.2 mmoL/L (3.5-5.1); Sodium 134 mmol/L (136-145); Total Protein,Serum 6.0 g/dl (6.3-8.2); Uric Acid 3.9 mg/dl (2.5-6.2)
[2024-12-29 10:40] LABS: RBC Morphology Normal; Total Cells Counted 100
== END 2024-12-29 23:59 | disposition home or self-care (01) ==
LOC: LAB 09:12
PROVIDERS: Visit Provider Obstetrics & Gynecology
DX: O13.9 Gestational [pregnancy-induced] hypertension without significant proteinuria, unspecified trimester (principal); Z3A.00 Weeks of gestation of pregnancy not specified
CPT/HCPCS: 36415; 80053; 82570; 83615; 84156; 84550; 85007; 85014; 85018; 85048; 85049

== ENCOUNTER 2025-01-02 14:22 | Outpatient (CLI) | payer BC, SELFPAY ==
--- OUTSIDE RECORDS SUMMARY | 2024-11-12 09:28 | XMS_ITS ---
Glucola 184, CBC 10.6 & macrocytic, RPR/HIV neg Created on: November 12, 2024 Nereida Holland : 1995 Sex: Female Author Organization [facility] Address [address] [place] [address] Phone Care Team Providers Care Technical Project Lead Name Role Phone Oneyda GASTELUM, [facility] Conditions or Problems No information available. Medications [...] Blood by Automated count Plan of Care No information available. Procedures No information available. Vital Signs No information available. Immunizations No information available. Advance Directives No information available.
--- OUTSIDE RECORDS SUMMARY | 2024-11-12 23:59 | XMS_ITS ---
Author Organization [facility] Address [address] [place] [address] Phone Care Team Providers Care Hydroelectric Production Manager Name Role Phone Oneyda GASTELUM, [facility] Conditions or Problems No information available. Medications No information available. Medications Administered No information available. Allergies, Adverse Reactions, Alerts No information available. Results No information available. Plan of Care No information available. Procedures No information available. Vital Signs No information available. Immunizations No information available. Advance Directives No information available.
--- OUTSIDE RECORDS SUMMARY | 2024-11-18 07:54 | XMS_ITS | Encounter Summary ---
Author Organization formerly [facility] Care Address [address] [place] [address] Care Team Providers Care Message Clerk Name Role Phone [facility] Primary Care Provider Reason for Visit * Diagnostic Imaging (Routine) - Pending Review Specialty Diagnoses / Procedures Referred By Myriam t Referred To Contact Diagnoses , incidental (HHS-HCC) BMI 31.0-31.9,adult Procedures US OB Targeted 2nd/3rd Tri Single Gestation US OB Targeted 2nd/3rd Tri Single Gestation US OB Transabd 2nd/3rd Tri Single Gestation Allie Hanson MD [address] [place] [address] Phone: tel: fax: Referral ID Status Reason Start Date Expiration Date V isits Requested Visits Authorized [id number] Pending Review 09/30/2024 09/30/2025 1 1 Encounter Details Date Type Department Care Team (Latest Contact Info) Description 11/18/2024 7:54 AM EDT - 11/18/2024 11:59 PM EDT Hospital Encounter IMG OB [facility] [place] [address] [place] [id number] Allie Hanson MD [address] [place] [address] Nir Sanchez MD [address] [facility] [id number] [place] [address] , incidental (HHS-HCC); BMI 31.0-31.9,adult Discharge Disposition: [...] Routine 11/18/2024 8:42 AM EDT , incidental ([facility]) BMI 31.0-31.9,adult documented in this encounter [...] 20, BMI 31.0-31.9 - Other obesity Procedures 26565: Detailed OB Ultrasound Narrative 11/18/2024 8:58 AM [...] EFW (oz) 14 oz EFW by: Hadlock ([id number]) Extended CM 7.5 mm 83% Nicolaides Head / Face / Neck Cephalic index 0.77 32% Nicolaides Rt Senior Scientist 4.5 mm Extremities / Bony Struc FL [...] normal LVOT view: normal 3-vessel view: normal 1-kuznap-clmkfrd view: normal Heart / Thorax Situs: situs [...] 63% Hadlock Femur45.3 mm25w 0d 23% Hadlock Ydvtcmk74.6 mm25w 4d 46% Patrick HC / AC1.11 CUZ461 g25w 4d 52% Lei EFW (lb)1 lb EFW (oz)14 oz EFW by:Hadlock ([id number]) Extended CM7.5 mm 83% Nicolaides Head / Face / Neck Cephalic index0.77 32% Nicolaides Rt Vp4.5 mm Extremities / Bony Struc FL / BPD0.69 FL / HC0.19 FL / AC0.21 Other Structures ADI181 bpm General Evaluation Cardiac activity present. FHR [...] view:normal RVOT view:normal LVOT view:normal 3-vessel view:normal 4-mqhzhs-jfksomo view:normal Heart / Thorax Situs:situs solitus (normal) [...] Than 20, BMI31.0-31.9 - Other obesity Procedures 24243: Detailed OB Ultrasound us Allie Hanson MD IMG US ORDERABLES Final Re sult documented in this encounter Visit Diagnoses Diagnosis , incidental ([facility]) state, incidental BMI 31.0-31.9,adult documented in this encounter Care Teams Message Clerk Relationship Specialty Start Date End Date [address] [phone] PCP - General 07/22/24 documented as of this encounter
--- OUTSIDE RECORDS SUMMARY | 2024-11-18 23:59 | XMS_ITS ---
Author Organization [facility] Address [address] [place] [address] Phone Care Team Providers Care Pan Devulcanizer Name Role Phone Dl GASTELUM, [facility] Unavailable Conditions or Problems No information available. Medications No information available. Medications Administered No information available. Allergies, Adverse Reactions, Alerts No information available. Results No information available. Plan of Care No information available. Procedures No information available. Vital Signs No information available. Immunizations No information available. Advance Directives No information available.
--- OUTSIDE RECORDS SUMMARY | 2024-11-24 14:03 | XMS_ITS ---
Author Organization [facility] Address [address] [place] [address] Phone Care Team Providers Care Medicare Compliance Auditor Name Role Phone Oneyda GASTELUM, [employer] [facility] [employer] Conditions or Problems No information available. Medications [...]
--- OUTSIDE RECORDS SUMMARY | 2025-01-02 14:30 | XMS_ITS | Encounter Summary ---
Author Organization [facility] Address [address] [place] [address] Care Team Providers Care Woodwind Reeds Cutter Name Role Phone [facility] Primary Care Provider Encounter Details Date Type Department Care Team (Late st Contact Info) Description 09/30/2024 Community [facility] [address] [place] [address] Allie Hanson MD [address] [place] [address] , incidental ([facility]) (Primary Dx) Social History Tobacco Use Types [...] this encounter Visit Diagnoses Diagnosis , incidental ([facility])- Primary state, incidental documented in this encounter Care Teams Woodwind Reeds Cutter Relationship Specialty Start Date End Date [facility] [address] [place] [address] PCP - General 07/22/24 documented as of this encounter
--- OUTSIDE RECORDS SUMMARY | 2025-01-02 14:30 | XMS_ITS | Clinical Summary ---
Author Organization [facility] Address [address] [place] [address] Care Team Providers Care Rubber Tubing Splicer Name Role Phone Provider Primary Care Provider [...] (1 - 3-dose SCD M series) 2020 Influenza Vaccine (#1) 2024 03/06/2018 Hepatitis A [...] age to complete this topic Care Teams Rubber Tubing Splicer Relationship Specialty Start Date End Date Provider PCP - General 11/24/18
--- OUTSIDE RECORDS SUMMARY | 2025-01-02 14:30 | XMS_ITS | Clinical Summary ---
Author Organization [facility] Address [address] [facility] [place] [address] Care Team Providers Care Almond Paste Molder Name Role Phone Unavailable Primary Care Provider [...] 1993 DTaP/Tdap/Td Vaccines (1 - Tdap) 2012 Influenza Vaccine (#1) 2024 Zoster Vaccine (1 of 2) 2043 HPV [...]
--- OUTSIDE RECORDS SUMMARY | 2025-01-02 14:30 | XMS_ITS | Encounter Summary ---
Author Organization [facility] Address [address] [place] [address] Care Team Providers Care Housing Coordinator Name Role Phone [facility] Care Provider Reason for Referral * Diagnostic Imaging (Routine) - Pending Review Specialty Diagnoses / Procedures Referred By Contac t Referred To Contact Diagnoses state, incidental (HHS-HCC) Procedures US OB Less Than 14 Wks Transabd 1st Tri Single Gest Allie Hanson MD [address] [place] [address] Phone: tel: fax: Referral ID Status Reason Start Date Expiration Date V isits Requested Visits Authorized [id number] Pending Review 07/20/2024 07/20/2025 1 0 Encounter Details Date Type Department Care Team (Late st Contact Info) Description 07/20/2024 Community Orders [facility] [address] [place] [address] Allie Hanson MD [address] [place], [place] [id number] state, incidental (HHS-HCC) (Primary Dx) Social History [...] ====== Diagnoses O36.80X0: with inconclusive viability Procedures 10964: 1st Trimester Ultrasound Narrative 07/22/2024 3:34 PM [...] CRL19.6 mm8w 4d 85% Hadlock Cardiac activity:present IMN007 bpm Other:Subchorionic bleed seen inferior to gestational sac measures 23 x 9x 10mm, patient denies bleeding. General Evaluation Cardiac activity present Amniotic fluid: normal amount Biometry Standard ZBV499 bpm CRL19.6 mm8w 4d 85% Hadlock Extended [...] ====== Diagnoses O36.80X0: with inconclusive fetalviability Procedures 60458: 1st Trimester Ultrasound us Allie Hanson MD G US ORDERABLES Final Re sult documented in this encounter Visit Diagnoses Diagnosis state, incidental ([facility])- Primary state, incidental state, incidental ([facility]) state, incidental documented in this encounter Care Teams Housing Coordinator Relationship Specialty Start Date End Date [facility] [id number] PCP - General 07/22/24 documented as of this encounter
--- OUTSIDE RECORDS SUMMARY | 2025-01-02 14:30 | XMS_ITS | Clinical Summary ---
Author Organization [facility] Address [address] [place] [address] Care Team Providers Care Food And Beverage Service Manager Name Role Phone [facility] Primary Care Provider Source Comments In the [...] prosecute any alcohol or drug abuse patient.[facility] Health Care Encounters Date Type Department Care Team Description 11/18/2024 7:54 AM EDT - 11/18/2024 11:59 PM EDT Hospital Encounter IMG [facility] [place] [address] Allie Hanson MD Goodnight, William Harold, MD , incidental ([facility]); BMI 31.0-31.9,adult Discharge Disposition: Home with Self Care from Last 3 Months Social History Tobacco [...] Routine 11/18/2024 8:42 AM EDT , incidental ([facility]) BMI 31.0-31.9,adult from Last 3 Months Results [...] 20, BMI 31.0-31.9 - Other obesity Procedures 38080: Detailed OB Ultrasound Narrative 11/18/2024 8:58 AM [...] EFW (oz) 14 oz EFW by: Hadlock ([id number]) Extended CM 7.5 mm 83% Nicolaides Head / Face / Neck Cephalic index 0.77 32% Nicolaides Rt Turbine Subassembler 4.5 mm Extremities / Bony Struc FL [...] normal LVOT view: normal 3-vessel view: normal 1-uylzdp-wsgurqj view: normal Heart / Thorax Situs: situs [...] 63% Hadlock Femur45.3 mm25w 0d 23% Hadlock Beceujg42.6 mm25w 4d 46% Patrick HC / AC1.11 HRX497 g25w 4d 52% Lei EFW (lb)1 lb EFW (oz)14 oz EFW by:Hadlock ([id number]-FL) Extended CM7.5 mm 83% Nicolaides Head / Face / Neck Cephalic index0.77 32% Nicolaides Rt Vp4.5 mm Extremities / Bony Struc FL / BPD0.69 FL / HC0.19 FL / AC0.21 Other Structures WFV582 bpm General Evaluation Cardiac activity present. FHR [...] view:normal RVOT view:normal LVOT view:normal 3-vessel view:normal 7-ulxccr-cbwryyc view:normal Heart / Thorax Situs:situs solitus (normal) [...] Than 20, BMI31.0-31.9 - Other obesity Procedures 45247: Detailed OB Ultrasound us Allie Hanson MD [facility] US ORDERABLES Final Re sult from Last 3 Months Insurance [facility] GENERIC Care Teams Food And Beverage Service Manager Relationship Specialty Start Date End Date [address] [phone] PCP - General 07/22/24
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
--- NOTE | 2025-01-02 15:30 | US_ITS ---
PROCEDURE: US OB BIOPHYSICAL PROFILE CLINICAL INDICATION: follow up on growth COMPARISON: No exams were available for comparison FINDINGS: Transabdominal sonographic images of the uterus were obtained. From her established due date she is 31weeks 6days. The following parameters are obtained: Viable Fetus in the cephalic presentation with an anterior placenta grade 2. Average ultrasound age is 33weeks 4days Estimated weight 2,269g, 5 lb 0 oz The cervix measures 5.47 cm. Measurements: heart Rate = 135bpm BPD = 34weeks 1day, 94 percentile HC = 33weeks 2days, 51 percentile AC = 35weeks 0 days, >98 percentile FL = 31weeks 5days, 30 percentile HC/AC is 0.97 FL/BPD is 0.72 FL/AC is 0.2 92 percentile Amniotic fluid index: 9.31cm, MVP 3.92 cm Qualitative AFV:2 Breathing movements: 2 Gross Body Movements: 2 Tone: 2 Biophysical profile score: 8 No obvious anomalies evident.Kidneys, profile, bladder, stomach, four-chamber heart, three-vessel cord appear normal. IMPRESSION: 1. Viable fetus in the cephalic presentation with an anterior placenta grade 2. 2. Fluid is within normal limits with an amniotic fluid index 9.31 cm, MVP 3.92 cm. 3. Biophysical profile is 8/8 with good breathing movement and movement seen. 4. Fetus is showed accelerated growth with the abdominal circumference currently 3 weeks ahead. 5. Suggest repeat growth scan in 4 weeks. 6. Limited anatomical scan appears normal. Dictated by: Jose Blackmon MD 01/02/2025 18:49 Jose Blackmon MD in OV 01/02/2025 18:49
== END 2025-01-02 23:59 | disposition home or self-care (01) ==
LOC: RAD 14:23
PROVIDERS: PCP Obstetrics & Gynecology; Visit Provider Obstetrics & Gynecology
DX: O36.63X0 Maternal care for excessive fetal growth, third trimester, not applicable or unspecified (principal); O13.3 Gestational [pregnancy-induced] hypertension without significant proteinuria, third trimester; O99.213 Obesity complicating pregnancy, third trimester; O12.03 Gestational edema, third trimester; E66.9 Obesity, unspecified; Z3A.31 31 weeks gestation of pregnancy
CPT/HCPCS: 76816; 76819

== ENCOUNTER 2025-01-11 11:34 | Outpatient (CLI) | payer BC, SELFPAY ==
--- OUTSIDE RECORDS SUMMARY | 2024-11-18 07:54 | XMS_ITS | Encounter Summary ---
Author Organization [facility] Care Address [address] [place] [address] Care Team Providers Care Dairy Farm Operator Name Role Phone [facility] Primary Care Provider Reason for Visit * Diagnostic Imaging (Routine) - Pending Review Specialty Diagnoses / Procedures Referred By Myriam t Referred To Contact Diagnoses , incidental (HHS-HCC) BMI 31.0-31.9,adult Procedures US OB Targeted 2nd/3rd Tri Single Gestation US OB Targeted 2nd/3rd Tri Single Gestation US OB Transabd 2nd/3rd Tri Single Gestation Allie Hanson MD [address] [place] [address] Phone: tel: fax: Referral ID Status Reason Start Date Expiration Date V isits Requested Visits Authorized [id number] Pending Review 09/30/2024 09/30/2025 1 1 Encounter Details Date Type Department Care Team (Latest Contact Info) Description 11/18/2024 7:54 AM EDT - 11/18/2024 11:59 PM EDT Hospital Encounter IMG OB [facility] [address] [place] [phone] Allie Hanson MD [address] [place] [address] Nir Sanchez MD [address] [facility] Obstetrics & Gynecology #74[address] [place] [address] , incidental (HHS-HCC); BMI 31.0-31.9,adult Discharge Disposition: [...] Routine 11/18/2024 8:42 AM EDT , incidental ([facility]) BMI 31.0-31.9,adult documented in this encounter Results [...] 20, BMI 31.0-31.9 - Other obesity Procedures 97972: Detailed OB Ultrasound Narrative 11/18/2024 8:58 AM [...] EFW (oz) 14 oz EFW by: Hadlock (OTR-WQ-LB-FL) Extended CM 7.5 mm 83% Nicolaides Head / Face / Neck Cephalic index 0.77 32% Nicolaides Rt Freedom Of Information Officer 4.5 mm Extremities / Bony Struc FL [...] normal LVOT view: normal 3-vessel view: normal 0-lagaba-ndfkcfo view: normal Heart / Thorax Situs: situs [...] (weeks days)25 w + 3 d Assigned OTREGA:02/28/2025 Growth Overview Exam date GA BPD (mm) HC (mm) AC(mm) FL (mm) HL (mm) EFW (g) 11/18/2024 25w 3d 65.5 76% 239.9 60%216.4 63% 45.3 23% 42.6 46% 845 52% Biometry Standard BPD65.5 mm26w 3d 76% Hadlock OFD85.1 mm27w 4d 96% Patrick HC239.9 mm25w 6d 60% Chervenak Cerebellum tr29.2 mm26w 6d 70% Woodall AC216.4 mm26w 1d 63% Hadlock Femur45.3 mm25w 0d 23% Hadlock Pqiriis50.6 mm25w 4d 46% Patrick HC / AC1.11 [id number] g25w 4d 52% Lei EFW (lb)1 lb EFW (oz)14 oz EFW by:Hadlock (IAJ-JP-CC-FL) Extended CM7.5 mm 83% Nicolaides Head / Face / Neck Cephalic index0.77 32% Nicolaides Rt Vp4.5 mm Extremities / Bony Struc FL / BPD0.69 FL / HC0.19 FL / AC0.21 Other Structures HLR063 bpm General Evaluation Cardiac activity present. FHR [...] view:normal RVOT view:normal LVOT view:normal 3-vessel view:normal 6-ipkwpe-dnksdwf view:normal Heart / Thorax Situs:situs solitus (normal) [...] Than 20, BMI31.0-31.9 - Other obesity Procedures 54606: Detailed OB Ultrasound us Allie Hanson MD IMG US ORDERABLES Final Re sult documented in this encounter Visit Diagnoses Diagnosis , incidental ([facility]) state, incidental BMI 31.0-31.9,adult documented in this encounter Care Teams Dairy Farm Operator Relationship Specialty Start Date End Date [address] [phone] PCP - General 07/22/24 documented as of this encounter
--- OUTSIDE RECORDS SUMMARY | 2024-11-18 23:59 | XMS_ITS ---
Author Organization [facility] Address [address] [place] [address] Phone Care Team Providers Care Center Sales And Service Associate Name Role Phone Dl GASTELUM, [facility] Unavailable Conditions or Problems No information available. Medications No information available. Medications Administered No information available. Allergies, Adverse Reactions, Alerts No information available. Results No information available. Plan of Care No information available. Procedures No information available. Vital Signs No information available. Immunizations No information available. Advance Directives No information available.
--- OUTSIDE RECORDS SUMMARY | 2024-11-24 14:03 | XMS_ITS ---
Author Organization [facility] Address [address] [place] [address] Phone Care Team Providers Care Ruby On Rails Web Developer Name Role Phone Oneyda GASTELUM, [facility] Conditions or Problems No information available. [...]
--- OUTSIDE RECORDS SUMMARY | 2025-01-13 11:44 | XMS_ITS | Encounter Summary ---
Author Organization [facility] Address [address] [place] [id number] Care Team Providers Care Digital Commentator Name Role Phone [facility] Care Provider Reason for Referral * Diagnostic Imaging (Routine) - Pending Review Specialty Diagnoses / Procedures Referred By Contac t Referred To Contact Diagnoses state, incidental (HHS-HCC) Procedures US OB Less Than 14 Wks Transabd 1st Tri Single Gest Allie Hanson MD [address] [place] [address] Phone: tel: fax: Referral ID Status Reason Start Date Expiration Date V isits Requested Visits Authorized [id number] Pending Review 07/20/2024 07/20/2025 1 0 Encounter Details Date Type Department Care Team (Late st Contact Info) Description 07/20/2024 Community Orders [facility] [address] [place] [address] Allie Hanson MD [address] [place], [place] [id number] state, incidental (HHS-HCC) (Primary Dx) Social History [...] ====== Diagnoses O36.80X0: with inconclusive viability Procedures 96784: 1st Trimester Ultrasound Narrative 07/22/2024 3:34 PM [...] CRL19.6 mm8w 4d 85% [place] Cardiac activity:present CLK886 bpm Other:Subchorionic bleed seen inferior to gestational sac measures 23 x 9x 10mm, patient denies bleeding. General Evaluation Cardiac activity present Amniotic fluid: normal amount Biometry Standard UON588 bpm CRL19.6 mm8w 4d 85% [place] Extended [...] ====== Diagnoses O36.80X0: with inconclusive fetalviability Procedures 00189: 1st Trimester Ultrasound us Allie Hanson MD G US ORDERABLES Final Re sult documented in this encounter Visit Diagnoses Diagnosis state, incidental ([facility])- Primary state, incidental state, incidental ([facility]) state, incidental documented in this encounter Care Teams Digital Commentator Relationship Specialty Start Date End Date [facility]-[address] [phone] PCP - General 07/22/24 documented as of this encounter
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
--- OUTSIDE RECORDS SUMMARY | 2025-01-13 11:44 | XMS_ITS | Clinical Summary ---
Author Organization [facility] Address [address] [place] [address] Care Team Providers Care Booster Pump Oiler Name Role Phone Provider Primary Care Provider [...] age to complete this topic Care Teams Booster Pump Oiler Relationship Specialty Start Date End Date Provider PCP - General 11/24/18
--- OUTSIDE RECORDS SUMMARY | 2025-01-13 11:45 | XMS_ITS | Clinical Summary ---
Author Organization [facility] Address [address] [place] [address] Care Team Providers Care Biomechanical Engineer Name Role Phone [facility] Primary Care Provider Source Comments In [...] or prosecute any alcohol or drug abuse patient.[facility] Health Care Encounters Date Type Department Care Team Description 11/18/2024 7:54 AM EDT - 11/18/2024 11:59 PM EDT Hospital Encounter IMG [facility] [place] [address] Allie Hanson MD Goodnight, William Harold, MD , incidental ([facility]); BMI 31.0-31.9,adult Discharge Disposition: Home with Self [...] Routine 11/18/2024 8:42 AM EDT , incidental ([facility]) BMI 31.0-31.9,adult from Last 3 Months Results [...] 20, BMI 31.0-31.9 - Other obesity Procedures 44356: Detailed OB Ultrasound Narrative 11/18/2024 8:58 AM [...] EFW (oz) 14 oz EFW by: Hadlock (FIT-BM-OL-FL) Extended CM 7.5 mm 83% Nicolaides Head / Face / Neck Cephalic index 0.77 32% Nicolaides Rt Card Tender 4.5 mm Extremities / Bony Struc FL [...] normal LVOT view: normal 3-vessel view: normal 9-djcnua-clakohy view: normal Heart / Thorax Situs: situs [...] 63% Hadlock Femur45.3 mm25w 0d 23% Hadlock Idyjilr88.6 mm25w 4d 46% Patrick HC / AC1.11 LSL292 g25w 4d 52% Lei EFW (lb)1 lb EFW (oz)14 oz EFW by:Hadlock (KSN-PO-JL-FL) Extended CM7.5 mm 83% Nicolaides Head / Face / Neck Cephalic index0.77 32% Nicolaides Rt Vp4.5 mm Extremities / Bony Struc FL / BPD0.69 FL / HC0.19 FL / AC0.21 Other Structures LYN589 bpm General Evaluation Cardiac activity present. FHR [...] view:normal RVOT view:normal LVOT view:normal 3-vessel view:normal 6-jhxbrp-jmeeoop view:normal Heart / Thorax Situs:situs solitus (normal) [...] Than 20, BMI31.0-31.9 - Other obesity Procedures 95932: Detailed OB Ultrasound us Allie Hanson MD [facility] US ORDERABLES Final Re sult from Last 3 Months Insurance [facility] Care Teams Biomechanical Engineer Relationship Specialty Start Date End Date [address] [address] PCP - General 07/22/24
--- OUTSIDE RECORDS SUMMARY | 2025-01-13 11:45 | XMS_ITS | Clinical Summary ---
Author Organization [facility] Address [address] [facility] [place] [address] Care Team Providers Care Mechanical Lead Name Role Phone Unavailable Primary Care Provider [...]
--- OUTSIDE RECORDS SUMMARY | 2025-01-13 11:45 | XMS_ITS | Encounter Summary ---
Author Organization [facility] Address [address] [place] [address] Care Team Providers Care Health Information Tech Name Role Phone [facility] Primary Care Provider Encounter Details Date Type Department Care Team (Late st Contact Info) Description 09/30/2024 Community [facility] [address] [place] [address] Allie Hanson MD [address] [place] [address] , incidental ([facility]) (Primary Dx) [...] this encounter Visit Diagnoses Diagnosis , incidental ([facility])- Primary state, incidental documented in this encounter Care Teams Health Information Tech Relationship Specialty Start Date End Date [facility] [address] [place] [address] PCP - General 07/22/24 documented as of this encounter
== END 2025-01-11 23:59 ==
LOC: LAB.DROPOF 01-13 11:43
PROVIDERS: Visit Provider Obstetrics & Gynecology
DX: O13.9 Gestational [pregnancy-induced] hypertension without significant proteinuria, unspecified trimester (principal); O99.210 Obesity complicating pregnancy, unspecified trimester; O12.00 Gestational edema, unspecified trimester; E66.9 Obesity, unspecified; Z3A.00 Weeks of gestation of pregnancy not specified
CPT/HCPCS: 87086

== ENCOUNTER 2025-01-31 09:32 | Outpatient (CLI) | payer BC, SELFPAY ==
--- OUTSIDE RECORDS SUMMARY | 2025-02-03 09:47 | XMS_ITS | Clinical Summary ---
Author Organization [facility] Address [address] [facility] [place] [address] Care Team Providers Care Nail Feeder Name Role Phone Unavailable Primary Care Provider [...]
--- OUTSIDE RECORDS SUMMARY | 2025-02-03 09:47 | XMS_ITS | Encounter Summary ---
Author Organization [facility] Address [address] [place] [address] Care Team Providers Care Infrastructure Administrator Name Role Phone [facility] Primary Care Provider Encounter Details Date Type Department Care Team (Late st Contact Info) Description 09/30/2024 Community [facility] [address] [place] [address] Allie Hanson MD [address] [place] [address] , incidental ([facility]) (Primary Dx) Social History Tobacco Use [...] this encounter Visit Diagnoses Diagnosis , incidental ([facility])- Primary state, incidental documented in this encounter Care Teams Infrastructure Administrator Relationship Specialty Start Date End Date [facility] [address] [place] [address] PCP - General 07/22/24 documented as of this encounter
--- OUTSIDE RECORDS SUMMARY | 2025-02-03 09:47 | XMS_ITS | Clinical Summary ---
Author Organization [facility] Address [address] [place] [address] Care Team Providers Care Cardiographer Name Role Phone Provider Primary Care Provider [...] age to complete this topic Care Teams Cardiographer Relationship Specialty Start Date End Date Provider PCP - General 11/24/18
--- OUTSIDE RECORDS SUMMARY | 2025-02-03 09:47 | XMS_ITS | Data Portability ---
Author Organization [facility] Vignesh URBAN_Reji_ Address [address] [place] [address] Care Team Providers Care Transportation Attendant Name Role Phone [facility] Primary Care Provider [phone] Assessment No assessment recorded. Plan of Treatment Reminders Order Date Submit Date Provider Last Modified By Organization Details Last Modified Time Details Appointments None recorded . Lab rapid flu (A+B) 020 05/23/19 20 [email or web address] In-Office Order, Internal Use Only DO Not Attach Compendium DO Not Attach Compendium, Do Not Delete/merge, [id number] 0 10:18:39 rapid strep group A, throat 020 05/23/19 20 In-Office Order, Internal Use Only DO Not Attach Compendium DO Not Attach Compendium, Do Not Delete/merge, [id number] 0 10:18:38 Referral None recorded . Procedures None recorded . Surgeries None recorded . Imaging None recorded . Medication Orders None recorded . Patient TargetsNo targets recorded. Patient Instructions Encounter Date Encounter Id Patient Instructions Last Modified By Organization Details Last Modified Time 05/23/2019 [id number] learning about fever [email or web address] Not available 05/23/2019 10:18:38 influenza (flu): care instructions [email or web address] Not available 05/23/2019 10:18:38 After performing a Medical Screening Examination, I estimate there is MODERATE risk for future respiratory decompensation and onset of acute respiratory distress however there is currently L OW risk for AIRWAY COMPROMISE, ANAPHYLAXIS, CELLULITIS, EPIGLOTTIS, or NECROTIZING FASCIITIS, thus I consider the discharge disposition reasonable. Also, there is no evidence of peritonitis, sepsis, or toxicity. The patient and I have discussed the diagnosis and risks, and we agree with discharging home with close follow-up with the understanding that symptoms and presentations can change. We also discussed returning to the Office immediately or go directly to the ED if new or worsening symptoms occur. We have discussed the symptoms which are most concerning (e.g., difficulty breathing or swallowing, worsening fever, changing or worsening pain) that necessitate immediate presentation to the ED. [email or web address] Not available 05/23/2019 09:42:32 Reason for Referral None Reported. Results Created Date Observation Date Name Description Value Unit Range Abnormal Flag Note LastModifiedBy Organization Detail LastModifiedTime 05/23/1905/23/2019 rapid strep group A, throa t Strep negati ve Not Available In-Office Order Internal Use Only DO Not Attach Compendium DO Not Attach Compendium, Do Not Delete/merge, [id number] 05/23/2019 09:42:36 05/23/1905/23/2019 rapid flu (A+B) Flu A positi ve Not Available In-Office Order Internal Use Only DO Not Attach Compendium DO Not Attach Compendium, Do Not Delete/merge, [id number] 05/23/2019 09:42:35 05/23/1905/23/2019 rapid flu (A+B) Flu B negati ve Not Available In-Office Order Internal Use Only DO Not Attach Compendium DO Not Attach Compendium, Do Not Delete/merge, [id number] 05/23/2019 09:42:35 08/05/19 20 08/05/2019 PPD (deborah fied prote in deriv ative ), skin test Date Administered 2019 Not Available In-Office Order Internal Use Only DO Not Attach Compendium DO Not Attach Compendium, Do Not Delete/merge, [id number] 08/03/2019 11:23:12 08/05/19 20 08/05/2019 PPD (deborah fied prote in deriv ative ), skin test Location Administered RIGHT FOREAR M Not Available In-Office Order Internal Use Only DO Not Attach Compendium DO Not Attach Compendium, Do Not Delete/merge, [id number] 08/03/2019 11:23:12 08/05/19 20 08/05/2019 PPD (deborah fied prote in deriv ative ), skin test Administered By: BOBBY Y Not Available In-Office Order Internal Use Only DO Not Attach Compendium DO Not Attach Compendium, Do Not Delete/merge, [id number] 08/03/2019 11:23:12 08/05/19 20 08/05/2019 PPD (deborah fied prote in deriv ative ), skin test Date Test Read 2019 Not Available In-Office Order Internal Use Only DO Not Attach Compendium DO Not Attach Compendium, Do Not Delete/merge, [id number] 08/03/2019 11:23:12 08/05/19 20 08/05/2019 PPD (deborah fied prote in deriv ative ), skin test Test Result negati ve Not Available In-Office Order Internal Use Only DO Not Attach Compendium DO Not Attach Compendium, Do Not Delete/merge, [id number] 08/03/2019 11:23:12 08/05/19 20 08/05/2019 PPD (deborah fied prote in deriv ative ), skin test Test Read By: VANNESSA Aguilar Not Available In-Office Order Internal Use Only DO Not Attach Compendium DO Not Attach Compendium, Do Not Delete/merge, [id number] 08/03/2019 11:23:12 Result Notes None recorded. Medical Equipment None Reported. Allergies No known drug allergies Medications Name Sig Start Date Stop Date Status Note LastModified by Organization Details LastModified Time Tubersol 5 tub. unit/0.1 mL intradermal injection solution Inject 0.1 mL by intradermal route. 2019 active Not Available Not Available Not Avai lable DayQuil Allergy 12-HR active Not Available Not Available Not Available Vitals Date Recorded Body height Body mass index (BMI) Body weight Heart rate Body temperature Oxygen saturation Oxygen saturation in Arterial blood by Pulse oximetry Respiratory rate Systolic And Diastolic Provider Name and Address Organization Details Last Updated DateTime 0 167.64 cm 31.3 kg/m2 28938.9 2 g 147 /min 103 [degF] 98 % 98 % 15 /min 125/83 mm[Hg] Desire Marcum [place] - [facility] 0 09:45:22 Social History None recorded. Functional Status None recorded. Mental Status None recorded. Family History Nothing Reported. Medical History No medical history recorded. Gynecological HistoryNo gynecological history recorded. Obstetrics History GPAL:G 0 P 0 0 0 0 Past Encounters Encounter ID Performer Location Encounter Start Date Encounter Closed Date Diagnosis/Indication Diagnosis SNOMED-CT Code Diagnosis ICD10 Code Diagnosis IMO Codes Diagnosis Note [id number] Ibis Hurley PA-C [facility] [place] [address] [facility] [place] [address] [place] [address] 05/23/2019 08:43:45 05/23/2019 10:22:55 Influenza 0976679 J10.1 sample of Xofluza 40 mg given rest fluids contagious for 5-7 days from onset of symptoms go to ED if symptoms worsen Fever 315157517 R50.9 ibuprofen and/or Tylenol PRN Generalize d acute body pains 122801231 R52 Acute pharyngitis 725648 003 J02.9 Health Concerns Section Related Observation LastModified by Organization Detai ls LastModified Time None Recorded Concern Status LastModified by Organization Details LastModified Time None Recorded Advance Directives Directive None Recorded Payers Insurance Date Sequence Insurance Name Policy Number Policy Wick Covered Member ID Wick Member ID Guarantor Name 05/23/2019 1 *SELF PAY* Daniele Holland Notes Date Note Type Note Provider Name and Address Organization Details Recorded Time 0 text/html FeverReported by PatientHPIFor severity, patient reportsworseningbut reportshighest fever: (103). For duration, patient reportsconstant. For context, patient reportsno recent travel,no tick/insect bites, andno new medications. For associated symptoms, patient reportsno rashandno lethargy. Sore ThroatReported by PatientHPIFor quality, patient reportspainfulbut reportsno difficulty swallowing,no hoarseness, andno laryngitis. For severity, patient reportsworsening. For associated symptoms, patient reportsfever,cough,swoll en glands, andheadachebut reportsno throat hoarseness,no dysphagia,no nausea,no vomiting,no appetite loss,no itching throat,no choking,no globus sensation,no lethargy, andno rash. For location, patient reportsbilateral. For onset/timing, patient reportssudden. For duration, patient reportsstarted 2 day(s) ago. For context, patient reportsno recent travel,no tick/insect bites,no new medications, andno one else with similar symptoms. CoughReported by PatientHPIFor quality, patient reportsharsh. For associated symptoms, patient reportsfever,chills, andpost nasal dripbut reportsno chest pain,no heartburn,no nausea,no vomiting,no edema,no agitation, andno wheezing. For severity, patient reportsmild. For duration, patient reportsconstant. For timing, patient reportssudden (x 2 days). For context, patient reportsnon-smoker.ROS as noted in the HPI Ibis Hurley [facility], [facility] 05/23/2019 10:20:38 OBGyn Episode No OBEpisode recorded.
--- OUTSIDE RECORDS SUMMARY | 2025-02-03 09:47 | XMS_ITS | Encounter Summary ---
Author Organization [facility] Address [address] [place] [address] Care Team Providers Care Data Recovery Planner Name Role Phone [facility] Care Provider Reason for Referral * Diagnostic Imaging (Routine) - Pending Review Specialty Diagnoses / Procedures Referred By Contac t Referred To Contact Diagnoses state, incidental ([facility]) Procedures US OB Less Than 14 Wks Transabd 1st Tri Single Gest Allie Hanson MD [address] [place] [address] Phone: tel: fax: Referral ID Status Reason Start Date Expiration Date V isits Requested Visits Authorized [id number] Pending Review 07/20/2024 07/20/2025 1 0 Encounter Details Date Type Department Care Team (Late st Contact Info) Description 07/20/2024 Community Orders [facility] [address] [place] [address] Allie Hanson MD [address] [place], [place] [id number] state, incidental ([facility]) (Primary Dx) Social History [...] ====== Diagnoses O36.80X0: with inconclusive viability Procedures 62372: 1st Trimester Ultrasound Narrative 07/22/2024 3:34 PM [...] CRL19.6 mm8w 4d 85% Hadlock Cardiac activity:present YYZ064 bpm Other:Subchorionic bleed seen inferior to gestational sac measures 23 x 9x 10mm, patient denies bleeding. General Evaluation Cardiac activity present Amniotic fluid: normal amount Biometry Standard DGU884 bpm CRL19.6 mm8w 4d 85% Hadlock Extended [...] ====== Diagnoses O36.80X0: with inconclusive fetalviability Procedures 36177: 1st Trimester Ultrasound us Allie Hanson MD G US ORDERABLES Final Re sult documented in this encounter Visit Diagnoses Diagnosis state, incidental ([facility])- Primary state, incidental state, incidental ([facility]) state, incidental documented in this encounter Care Teams Data Recovery Planner Relationship Specialty Start Date End Date [facility]-[address] [phone] PCP - General 07/22/24 documented as of this encounter
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
--- OUTSIDE RECORDS SUMMARY | 2025-02-03 09:47 | XMS_ITS | Clinical Summary ---
Author Organization [facility] Care Address [address] [place] [address] Care Team Providers Care Script Girl Name Role Phone [facility] Primary Care Provider Source Comments In [...] or prosecute any alcohol or drug abuse patient.[facility] Health Care Encounters Date Type Department Care Team Description 11/18/2024 7:54 AM EDT - 11/18/2024 11:59 PM EDT Hospital Encounter [facility] [place] [address] Allie Hanson MD Goodnight, William Harold, MD , incidental ([facility]); BMI 31.0-31.9,adult Discharge Disposition: Home with Self [...] Routine 11/18/2024 8:42 AM EDT , incidental ([facility]) BMI 31.0-31.9,adult from Last 3 Months Results [...] 20, BMI 31.0-31.9 - Other obesity Procedures 21948: Detailed OB Ultrasound Narrative 11/18/2024 8:58 AM [...] EFW (oz) 14 oz EFW by: Hadlock ([id number]) Extended CM 7.5 mm 83% Nicolaides Head / Face / Neck Cephalic index 0.77 32% Nicolaides Rt Pipe Wrapping Machine Operator 4.5 mm Extremities / Bony Struc [...] normal LVOT view: normal 3-vessel view: normal 8-qxnamt-nxfzngj view: normal Heart / Thorax Situs: situs [...] 63% Hadlock Femur45.3 mm25w 0d 23% Hadlock Wdpvhau58.6 mm25w 4d 46% Patrick HC / AC1.11 UTQ049 g25w 4d 52% Lei EFW (lb)1 lb EFW (oz)14 oz EFW by:Hadlock ([id number]-FL) Extended CM7.5 mm 83% Nicolaides Head / Face / Neck Cephalic index0.77 32% Nicolaides Rt Vp4.5 mm Extremities / Bony Struc FL / BPD0.69 FL / HC0.19 FL / AC0.21 Other Structures PIG914 bpm General Evaluation Cardiac activity present. FHR [...] view:normal RVOT view:normal LVOT view:normal 3-vessel view:normal 4-picktx-jczkakh view:normal Heart / Thorax Situs:situs solitus (normal) [...] Than 20, BMI31.0-31.9 - Other obesity Procedures 33252: Detailed OB Ultrasound us Allie Hanson MD G US ORDERABLES Final Re sult from Last 3 Months Care Teams Script Girl Relationship Specialty Start Date End Date [facility]-[address] [address] PCP - General 07/22/24
== END 2025-01-31 23:59 | disposition home or self-care (01) ==
LOC: LAB.DROPOF 02-03 09:33
PROVIDERS: Visit Provider Obstetrics & Gynecology
DX: O99.210 Obesity complicating pregnancy, unspecified trimester (principal); E66.9 Obesity, unspecified; Z3A.00 Weeks of gestation of pregnancy not specified
CPT/HCPCS: 86403

== ENCOUNTER 2025-01-31 10:57 | Outpatient (CLI) | payer BC, SELFPAY ==
--- NOTE | 2025-01-31 10:45 | US_ITS ---
PROCEDURE: US OB BIOPHYSICAL PROFILE CLINICAL INDICATION: 4 week follow up COMPARISON: US US OB BIOPHYSICAL PROFILE from 01/02/2025 FINDINGS: Transabdominal sonographic images of the uterus were obtained. From her established due date she is 36weeks 0 days. The following parameters are obtained: Viable Fetus in the cephalic presentation with an anterior placenta grade 2. Average ultrasound age is 37weeks 5days Estimated weight 3,494g, 7 lb 11 oz Cervix measures 3.33 cm in length Measurements: heart Rate = 124bpm BPD = 38weeks 0 days, 95 percentile HC = 37weeks 6days, 65 percentile AC = 40weeks 2days, >98 percentile FL = 34weeks 4days, 12 percentile HC/AC is 0.92 FL/BPD is 0.72 FL/AC is 0.18 97 percentile Amniotic fluid index: 13.1cm, MVP 5.01 cm Qualitative AFV:2 Breathing movements: 2 Gross Body Movements: 2 Tone: 2 Biophysical profile score: 8 No obvious anomalies evident.Kidneys, profile, stomach, four-chamber heart, three-vessel cord appear normal. IMPRESSION: 1. Viable fetus in the cephalic presentation with an anterior placenta grade 2. 2. Fluid is within normal limits with an amniotic fluid index 13.1 cm, MVP 5.01 cm. 3. Biophysical profile is 8/8 with good breathing movement and movement seen. 4. There continues to be accelerated growth with the fetus currently 97 percentile. The abdominal circumference is 4 weeks ahead. 5. Limited anatomical scan appears normal. Dictated by: Jose Blackmon MD 02/01/2025 09:20 Jose Blackmon MD in [place] 02/01/2025 09:20
--- OUTSIDE RECORDS SUMMARY | 2025-01-31 11:01 | XMS_ITS | Clinical Summary ---
Author Organization [facility] Address [address] [place] [address] Care Team Providers Care Swimming Pool Servicer Name Role Phone Provider Primary Care Provider [...] age to complete this topic Care Teams Swimming Pool Servicer Relationship Specialty Start Date End Date Provider PCP - General 11/24/18
--- OUTSIDE RECORDS SUMMARY | 2025-01-31 11:01 | XMS_ITS | Encounter Summary ---
Author Organization [facility] Address [address] [place] [address] Care Team Providers Care Bed Manager Name Role Phone [facility] Care Provider Reason for Referral * Diagnostic Imaging (Routine) - Pending Review Specialty Diagnoses / Procedures Referred By Contac t Referred To Contact Diagnoses state, incidental ([facility]) Procedures US OB Less Than 14 Wks Transabd 1st Tri Single Gest Allie Hanson MD [address] [place] [address] Phone: tel: fax: Referral ID Status Reason Start Date Expiration Date V isits Requested Visits Authorized [id number] Pending Review 07/20/2024 07/20/2025 1 0 Encounter Details Date Type Department Care Team (Late st Contact Info) Description 07/20/2024 Community Orders [facility] [address] [place] [address] Allie Hanson MD [address] [place], [place] [id number] state, incidental ([facility]) (Primary Dx) Social History [...] ====== Diagnoses O36.80X0: with inconclusive viability Procedures 83275: 1st Trimester Ultrasound Narrative 07/22/2024 3:34 PM [...] CRL19.6 mm8w 4d 85% Hadlock Cardiac activity:present IPU381 bpm Other:Subchorionic bleed seen inferior to gestational sac measures 23 x 9x 10mm, patient denies bleeding. General Evaluation Cardiac activity present Amniotic fluid: normal amount Biometry Standard SDU675 bpm CRL19.6 mm8w 4d 85% Hadlock Extended [...] ====== Diagnoses O36.80X0: with inconclusive fetalviability Procedures 23038: 1st Trimester Ultrasound us Allie Hanson MD G US ORDERABLES Final Re sult documented in this encounter Visit Diagnoses Diagnosis state, incidental ([facility])- Primary state, incidental state, incidental ([facility]) state, incidental documented in this encounter Care Teams Bed Manager Relationship Specialty Start Date End Date [facility] [phone] PCP - General 07/22/24 documented as of this encounter
--- OUTSIDE RECORDS SUMMARY | 2025-01-31 11:01 | XMS_ITS | Encounter Summary ---
Author Organization [facility] Address [address] [place] [address] Care Team Providers Care Leather Stamper Name Role Phone [facility] Primary Care Provider Encounter Details Date Type Department Care Team (Late st Contact Info) Description 09/30/2024 Community [facility] [address] [place] [address] Allie Hanson MD [address] [place] [address] , incidental ([facility]) (Primary Dx) Social History Tobacco Use Types [...] this encounter Visit Diagnoses Diagnosis , incidental ([facility] Primary state, incidental documented in this encounter Care Teams Leather Stamper Relationship Specialty Start Date End Date [facility] [address] [place] [address] PCP - General 07/22/24 documented as of this encounter
--- OUTSIDE RECORDS SUMMARY | 2025-01-31 11:01 | XMS_ITS | Clinical Summary ---
Author Organization [facility] Address [address] [facility] [place] [address] Care Team Providers Care Conveyor Worker Name Role Phone Unavailable Primary Care Provider [...]
--- OUTSIDE RECORDS SUMMARY | 2025-01-31 11:01 | XMS_ITS | Clinical Summary ---
Author Organization [facility] Address [address] [place] [address] Care Team Providers Care Hard Metals Engraver Hand Name Role Phone [facility] Primary Care Provider Source Comments [...] any alcohol or drug abuse patient.[facility] Health Care Encounters Date Type Department Care Team Description 11/18/2024 7:54 AM EDT - 11/18/2024 11:59 PM EDT Hospital Encounter IMG [facility] [place] [address] Allie Hanson MD Goodnight, William Harold, MD , incidental ([facility]); BMI 31.0-31.9,adult Discharge Disposition: Home with Self [...] Routine 11/18/2024 8:42 AM EDT , incidental ([facility]) BMI 31.0-31.9,adult from Last 3 Months Results [...] 20, BMI 31.0-31.9 - Other obesity Procedures 65207: Detailed OB Ultrasound Narrative 11/18/2024 8:58 AM [...] EFW (oz) 14 oz EFW by: Hadlock (ZUI-XC-CO-FL) Extended CM 7.5 mm 83% Nicolaides Head / Face / Neck Cephalic index 0.77 32% Nicolaides Rt Crime Data Specialist 4.5 mm Extremities / Bony Struc FL [...] normal LVOT view: normal 3-vessel view: normal 3-mwccwk-zoldoou view: normal Heart / Thorax Situs: situs [...] 63% Hadlock Femur45.3 mm25w 0d 23% Hadlock Vdiyisq40.6 mm25w 4d 46% Patrick HC / AC1.11 FUI038 g25w 4d 52% Lei EFW (lb)1 lb EFW (oz)14 oz EFW by:Hadlock (BKB-JA-QG-FL) Extended CM7.5 mm 83% Nicolaides Head / Face / Neck Cephalic index0.77 32% Nicolaides Rt Vp4.5 mm Extremities / Bony Struc FL / BPD0.69 FL / HC0.19 FL / AC0.21 Other Structures BXK614 bpm General Evaluation Cardiac activity present. FHR [...] view:normal RVOT view:normal LVOT view:normal 3-vessel view:normal 9-rddbuz-bobkhyg view:normal Heart / Thorax Situs:situs solitus (normal) [...] Than 20, BMI31.0-31.9 - Other obesity Procedures 78064: Detailed OB Ultrasound us Allie Hanson MD G US ORDERABLES Final Re sult from Last 3 Months Care Teams Hard Metals Engraver Hand Relationship Specialty Start Date End Date [facility]-[address] [address] PCP - General 07/22/24
== END 2025-01-31 23:59 | disposition home or self-care (01) ==
LOC: RAD 10:58
PROVIDERS: PCP Obstetrics & Gynecology; Visit Provider Obstetrics & Gynecology
DX: O36.63X0 Maternal care for excessive fetal growth, third trimester, not applicable or unspecified (principal); O13.3 Gestational [pregnancy-induced] hypertension without significant proteinuria, third trimester; O99.213 Obesity complicating pregnancy, third trimester; E66.9 Obesity, unspecified; Z3A.36 36 weeks gestation of pregnancy
CPT/HCPCS: 76816; 76819

== ENCOUNTER 2025-02-08 13:59 | Inpatient (IN) | payer BC, SELFPAY ==
[2025-02-08 11:39] VITALS: BMI 37.8
--- OUTSIDE RECORDS SUMMARY | 2025-02-08 12:08 | XMS_ITS | Encounter Summary ---
Author Organization [facility] Care Address [address] [place] [address] Care Team Providers Care Fountain Manager Name Role Phone [facility] Primary Care Provider Encounter Details Date Type Department Care Team (Late st Contact Info) Description 09/30/2024 [facility] [address] [place] [address] Allie Hanson MD [address] [place] [address] , incidental ([facility]) (Primary Dx) Social History Tobacco Use Types [...] this encounter Visit Diagnoses Diagnosis , incidental ([facility])- Primary state, incidental documented in this encounter Care Teams Fountain Manager Relationship Specialty Start Date End Date [facility] [address] [place] [address] PCP - General 07/22/24 documented as of this encounter
--- OUTSIDE RECORDS SUMMARY | 2025-02-08 12:08 | XMS_ITS | Clinical Summary ---
Author Organization [facility] Address [address] [place] [address] Care Team Providers Care Ship Design Teacher Name Role Phone Unavailable Primary Care Provider [...]
--- OUTSIDE RECORDS SUMMARY | 2025-02-08 12:08 | XMS_ITS | Clinical Summary ---
Author Organization [facility] Care Address [address] [place] [address] Care Team Providers Care [employer] Computer Science Teacher Name Role Phone [facility] Primary Care Provider Source Comments In [...] or prosecute any alcohol or drug abuse patient.[facility] Health Care Encounters Date Type Department Care Team Description 11/18/2024 7:54 AM EDT - 11/18/2024 11:59 PM EDT Hospital Encounter [facility] [place] [address] Allie Hanson MD Goodnight, William Harold, MD , incidental ([facility]); BMI 31.0-31.9,adult Discharge Disposition: Home with [...] Routine 11/18/2024 8:42 AM EDT , incidental ([facility]) BMI 31.0-31.9,adult from Last 3 [...] 20, BMI 31.0-31.9 - Other obesity Procedures 73744: Detailed OB Ultrasound Narrative 11/18/2024 8:58 AM [...] EFW (oz) 14 oz EFW by: Hadlock ([id number]) Extended CM 7.5 mm 83% Nicolaides Head / Face / Neck Cephalic index 0.77 32% Nicolaides Rt Car Hiker 4.5 mm Extremities / Bony Struc FL [...] normal LVOT view: normal 3-vessel view: normal 0-ggysii-vtcdvpl view: normal Heart / Thorax Situs: situs [...] 63% Hadlock Femur45.3 mm25w 0d 23% Hadlock Iabshbp34.6 mm25w 4d 46% Patrick HC / AC1.11 VGV653 g25w 4d 52% Lei EFW (lb)1 lb EFW (oz)14 oz EFW by:Hadlock ([id number]-FL) Extended CM7.5 mm 83% Nicolaides Head / Face / Neck Cephalic index0.77 32% Nicolaides Rt Vp4.5 mm Extremities / Bony Struc FL / BPD0.69 FL / HC0.19 FL / AC0.21 Other Structures HWL279 bpm General Evaluation Cardiac activity present. FHR [...] view:normal RVOT view:normal LVOT view:normal 3-vessel view:normal 0-eweurj-dfwtkpm view:normal Heart / Thorax Situs:situs solitus (normal) [...] Than 20, BMI31.0-31.9 - Other obesity Procedures 55909: Detailed OB Ultrasound us Allie Hanson MD G US ORDERABLES Final Re sult from Last 3 Months Care Teams [employer] Computer Science Teacher Relationship Specialty Start Date End Date [facility]-[address] [address] PCP - General 07/22/24
--- OUTSIDE RECORDS SUMMARY | 2025-02-08 12:08 | XMS_ITS | Encounter Summary ---
Author Organization [facility] Address [address] [place] [id number] Care Team Providers Care Center Aisle Cashier Name Role Phone [facility] Care Provider Reason for Referral * Diagnostic Imaging (Routine) - Pending Review Specialty Diagnoses / Procedures Referred By Contac t Referred To Contact Diagnoses state, incidental (HHS-HCC) Procedures US OB Less Than 14 Wks Transabd 1st Tri Single Gest Allie Hanson MD [address] [place] [address] Phone: tel: fax: Referral ID Status Reason Start Date Expiration Date V isits Requested Visits Authorized [id number] Pending Review 07/20/2024 07/20/2025 1 0 Encounter Details Date Type Department Care Team (Late st Contact Info) Description 07/20/2024 Community Orders [facility] [address] [place] [address] Allie Hanson MD [address] [place], [place] [id number] state, incidental (HHS-HCC) (Primary Dx) Social History [...] ====== Diagnoses O36.80X0: with inconclusive viability Procedures 07459: 1st Trimester Ultrasound Narrative 07/22/2024 3:34 PM [...] CRL19.6 mm8w 4d 85% [place] Cardiac activity:present BPZ453 bpm Other:Subchorionic bleed seen inferior to gestational sac measures 23 x 9x 10mm, patient denies bleeding. General Evaluation Cardiac activity present Amniotic fluid: normal amount Biometry Standard RNI660 bpm CRL19.6 mm8w 4d 85% [place] Extended [...] ====== Diagnoses O36.80X0: with inconclusive fetalviability Procedures 36991: 1st Trimester Ultrasound us Allie Hanson MD G US ORDERABLES Final Re sult documented in this encounter Visit Diagnoses Diagnosis state, incidental ([facility]-HCC)- Primary state, incidental state, incidental ([facility]-HCC) state, incidental documented in this encounter Care Teams Center Aisle Cashier Relationship Specialty Start Date End Date [facility]-[address] [id number] PCP - General 07/22/24 documented as of this encounter
--- OUTSIDE RECORDS SUMMARY | 2025-02-08 12:08 | XMS_ITS | Clinical Summary ---
Author Organization [facility] Address [address] [place] [address] Care Team Providers Care Housekeeping Laundry Worker Name Role Phone Provider Primary Care Provider [...] 3-dose SCD M series) 2020 COVID-19 Vaccine (2024-2 6 season) 2024 Influenza Vaccine (#1) 2024 03/06/2018 [...] age to complete this topic Care Teams Housekeeping Laundry Worker Relationship Specialty Start Date End Date Provider PCP - General 11/24/18
--- OUTSIDE RECORDS SUMMARY | 2025-02-08 12:08 | XMS_ITS | Data Portability ---
Author Organization [facility] Vignesh URBAN_Reji_ Address [address] [place] [address] Care Team Providers Care Professor Of Exercise Science Name Role Phone ROLY [place] SIVAN [facility] Primary Care Provider Assessment No assessment recorded. Plan of Treatment Reminders Order Date Submit Date Provider Last Modified By Organization Details Last Modified Time Details Appointments None recorded . Lab rapid flu (A+B) 020 05/23/19 20 In-Office Order, Internal Use Only DO Not Attach Compendium DO Not Attach Compendium, Do Not Delete/merge, [id number] 0 10:18:39 rapid strep group A, throat 020 05/23/19 20 [email or web address] In-Office Order, Internal Use Only DO Not Attach Compendium DO Not Attach Compendium, Do Not Delete/merge, [id number] 0 10:18:38 Referral None recorded . Procedures None recorded . Surgeries None recorded . Imaging None recorded . Medication Orders None recorded . Patient TargetsNo targets recorded. Patient Instructions Encounter Date Encounter Id Patient Instructions Last Modified By Organization Details Last Modified Time 05/23/2019 [id number] learning about fever Not available 05/23/2019 10:18:38 influenza (flu): care instructions [email or web address] Not available 05/23/2019 10:18:38 After performing a [...] DO Not Attach Compendium, Do Not Delete/merge, [id number] 05/23/2019 09:42:36 05/23/1905/23/2019 rapid flu (A+B) Flu A positi ve Not Available In-Office Order Internal Use Only DO Not Attach Compendium DO Not Attach Compendium, Do Not Delete/merge, [id number] 05/23/2019 09:42:35 05/23/1905/23/2019 rapid flu (A+B) Flu B negati ve Not Available In-Office Order Internal Use Only DO Not Attach Compendium DO Not Attach Compendium, Do Not Delete/merge, [id number] 05/23/2019 09:42:35 08/05/19 20 08/05/2019 PPD (deborah fied prote in deriv ative ), skin test Date Administered 2019 Not Available In-Office Order Internal Use Only DO Not Attach Compendium DO Not Attach Compendium, Do Not Delete/merge, [id number] 08/03/2019 11:23:12 08/05/19 20 08/05/2019 PPD (deborah fied prote in deriv ative ), skin test Location Administered RIGHT FOREAR M Not Available In-Office Order Internal Use Only DO Not Attach Compendium DO Not Attach Compendium, Do Not Delete/merge, [id number] 08/03/2019 11:23:12 08/05/19 20 08/05/2019 PPD (deborah fied prote in deriv ative ), skin test Administered By: BOBBY Y Not Available In-Office Order Internal Use Only DO Not Attach Compendium DO Not Attach Compendium, Do Not Delete/merge, [id number] 08/03/2019 11:23:12 08/05/19 20 08/05/2019 PPD (deborah fied prote in deriv ative ), skin test Date Test Read 2019 Not Available In-Office Order Internal Use Only DO Not Attach Compendium DO Not Attach Compendium, Do Not Delete/merge, [id number] 08/03/2019 11:23:12 08/05/19 20 08/05/2019 PPD (deborah fied prote in deriv ative ), skin test Test Result negati ve Not Available In-Office Order Internal Use Only DO Not Attach Compendium DO Not Attach Compendium, Do Not Delete/merge, [id number] 08/03/2019 11:23:12 08/05/19 20 08/05/2019 PPD (deborah fied prote in deriv ative ), skin test Test Read By: VANNESSA Aguilar Not Available In-Office Order Internal Use Only DO Not Attach Compendium DO Not Attach Compendium, Do Not Delete/merge, [id number] 08/03/2019 11:23:12 Result Notes None recorded. Medical [...] Updated DateTime 0 167.64 cm 31.3 kg/m2 41604.9 2 g 147 /min 103 [degF] 98 % 98 % 15 /min 125/83 mm[Hg] Desire Marcum [place] [facility] 0 09:45:22 Social History [...] ICD10 Code Diagnosis IMO Codes Diagnosis Note [id number] Ibis Hurley PA-C [facility]_ [place] [address] [facility] [address] [place] [id number] 05/23/2019 08:43:45 05/23/2019 10:22:55 Influenza 7140076 J10.1 sample of Xofluza 40 mg given rest fluids contagious for 5-7 days from onset of symptoms go to ED if symptoms worsen Fever 404018629 R50.9 ibuprofen and/or Tylenol PRN Generalize d acute body pains [id number] R52 Acute pharyngitis 372280 003 J02.9 Health Concerns Section Related Observation [...] as noted in the HPI Ibis Hurley [facility], [facility] 05/23/2019 10:20:38 OBGyn Episode No OBEpisode recorded.
[2025-02-08 12:25] LABS: Hematocrit 31.9 % (37.0-47.0); Hemoglobin 10.7 g/dL (12.2-16.2); Immature Granulocytes % 1.2 %; Mean Corpuscular HGB Conc 33.5 g/dL (31.8-35.4); Mean Corpuscular Hemoglobin 31.8 pg (27.0-31.2); Mean Corpuscular Volume 94.7 fl (81-99); Nucleated Red Blood Cells % 0 %; Platelet Count 154 K/mm3 (142-424); Red Blood Count 3.37 M/mm3 (4.20-5.40); Red Cell Distribution Width-SD 47.4 fL; White Blood Count 7.3 K/mm3 (4.8-10.8)
[2025-02-08 12:35] LABS: Activated Partial Thrombo Time 26.9 seconds (22.8-30.6); Albumin Level 3.3 g/dl (3.5-5.0); Chloride 106 mmol/L (98-107); INR 0.95 (0.9-1.1); Prothrombin Time 10.6 seconds (10.1-12.5); Sodium 134 mmol/L (136-145)
[2025-02-08 12:36] LABS: Potassium 3.5 mmoL/L (3.5-5.1)
[2025-02-08 12:38] LABS: Alanine Aminotransferase 34 U/L (12-78); Albumin/Globulin Ratio 1.1 (1.1-1.8); Alkaline Phosphatase 150 U/L (38-126); Anion Gap 8.5 mEq/L (5-15); Aspartate Amino Transferase 51 U/L (14-36); Bilirubin,Total 0.2 mg/dl (0.2-1.3); Blood Urea Nitrogen 8 mg/dl (7-17); Calcium 8.9 mg/dl (8.4-10.2); Carbon Dioxide 23 mmol/L (22.0-30.0); Creatinine Clearance Estimated 273 mL/min (50-200); Creatinine,Serum 0.50 mg/dl (0.52-1.04); Estimated Glomerular Filt Rate 144 ml/min (>60); GFR (African American) 174 ML/MIN (>60); Globulin 3.1 g/dL (1.3-3.2); Glucose 79 mg/dl (74-100); Total Protein,Serum 6.4 g/dl (6.3-8.2); Uric Acid 4.1 mg/dl (2.5-6.2)
[2025-02-08 12:42] LABS: Fibrinogen 431 mg/dL (229.9-363.5)
[2025-02-08 12:51] VITALS: BMI 37.8
--- NOTE | 2025-02-08 16:41 | EXP.HP ---
History of Present Illness *Admission Date: 02/08/25 *Reason for visit:: -induced hypertension *History of present illness: She is a 29-year-old 2 para 0 at 37+ weeks gestational age. She was seen in the office today with increased blood pressure. She was sent to labor and delivery and her blood pressure remained elevated. It is mostly in [id number] range over 90-100 range. She denies headache, scotomata or epigastric pain. Laboratory investigations revealed a normal uric acid with slightly elevated AST. Platelets are normal. She has 1+ proteinuria. As a result of this we are admitting her for induction of labor. Her cervix is 2 cm 50% and Station -2. [facility] Disclaimer: The information contained in this section may have been updated after the patient was seen, as this information can be updated by other users. Medical History LGA (large for gestational age) fetus affecting mother, antepartum Maternal obesity affecting , antepartum SAB (spontaneous ) Swelling of lower extremity during Surgical History [place] teeth extracted Family History No significant family history Social History Smoking Status: Former smoker alcohol intake: former current occupational status: employed Travel in the last 8 weeks?: None Have you lived/traveled outside US in past 30 days?: No Contact w/someone who lives/traveled outside US past 30 days?: No Exposure to someone with infectious disease in past 14 days?: No Do you have a fever (greater than 100.4 F or 38 C)?: No Have you tested positive for COVID-19?: No Exposed to someone with COVID-19 in past 14 days?: No Do you have a sore throat?: No Do you have a cough?: No Do you have any weakness?: No Do you have any diarrhea?: No Are you experiencing any unusual bleeding?: No Do you have any muscle aches/pain?: No Do you have any abdominal pain?: No Are you experiencing loss of taste or smell?: No Other Medical History Have you received the Flu Vaccine for this season: No Have you received the Pneumonia Vaccine: No Review of Systems Review of Systems Review of systems:: pertinent systems reviewed and negative unless documented below Meds Home Medications and Allergies Home Medications ?Medication ?Instructions ?Recorded ?Confirmed ?Type aspirin 81 mg tablet,delayed 81 mg PO DAILY 12/05/24 02/08/25 History release (Adult Aspirin Regimen) vits no.126-ferrous fum 1 tab PO DAILY 12/05/24 02/08/25 History 28 mg iron-folic acid 800 mcg tablet (Classic ) docusate sodium 100 mg capsule 100 mg PO DAILY 01/31/25 02/08/25 History New Prescriptions to Start Prescriptions: Allergies Allergy/AdvReac Type Severity Reaction Status Date / Time No Known Allergies Allergy Verified 02/08/25 10:50 Exam Data for Last 24 hours Vital signs and Labs for Last 24 Hours: Laboratory Results - last 24 hr 02/08/25 11:00: Urine Creatinine 124, Urine Total Protein 18.0 H 02/08/25 12:11: WBC 7.3, RBC 3.37 L, Hgb 10.7 L, Hct 31.9 L, MCV 94.7, MCH 31.8 H, MCHC 33.5, RDW 13.7, Plt Count 154, MPV 13.3 H, Neut % (Auto) 73.0, Lymph % (Auto) 16.5, [place] % (Auto) 7.8, Eos % (Auto) 1.1, Baso % (Auto) 0.4, Neut # (Auto) 5.3, Lymph # (Auto) 1.2, [place] # (Auto) 0.6, Eos # (Auto) 0.1, Baso # (Auto) 0.0, PT 10.6, INR 0.95, APTT 26.9, Fibrinogen 431 H, Sodium 134 L, Potassium 3.5, Chloride 106, Carbon Dioxide 23, Anion Gap 8.5, BUN 8, Creatinine 0.50 L, Estimated Creat Clear 273, Estimated GFR 144, Est GFR ( Amer) 174, Glucose 79, Uric Acid 4.1, Calcium 8.9, Total Bilirubin 0.2, AST 51 H, ALT 34, Alkaline Phosphatase 150 H, Total Protein 6.4, Albumin 3.3 L, Globulin 3.1, Albumin/Globulin Ratio 1.1 02/08/25 15:31: Blood Type O Positive, Antibody Screen Negative I & O for Last 24 hours: Intake & Output 02/06/25 02/07/25 02/08/25 02/09/25 11:59 11:59 11:59 11:59 Weight 234 lb 234 lb Constitutional Constitutional: no acute distress and obese *Routine HEENT Exam Head: Present normocephalic Eye: Present EOMI and PERRL ENT: Present mucous membranes moist *Routine Neck Exam Neck: Present supple; Absent lymphadenopathy *Routine Respiratory Exam Respiratory: Present CTA bilaterally *Routine Cardiovascular Exam Cardiovascular: Present RRR *Routine Abdominal Exam Abdominal: Present soft and normoactive bowel sounds; Absent tenderness *Routine Rectal Exam Rectal:: deferred *Routine Genitalia Exam Genitalia:: deferred *Routine Extremities Exam Extremities: Absent cyanosis, clubbing or edema *Routine Skin Exam Skin: Present warm; Absent rash *Routine Neurological Exam Neurological: Present alert and oriented X3 Assessment and Plan *Assessment and plan (1) Gestational hypertension affecting first : Status: Acute Category: Medical Code(s): O13.9 - Gestational [-induced] hypertension without significant proteinuria, unspecified trimester (2) LGA (large for gestational age) fetus affecting mother, antepartum: Status: Acute Qualifiers: Fetus number: single or unspecified fetus Qualified Code(s): O36.60X0 - Maternal care for excessive growth, unspecified trimester, not applicable or unspecified Category: Medical Code(s): O36.60X0 - Maternal care for excessive growth, unspecified trimester, not applicable or unspecified (3) Maternal obesity affecting , antepartum: Status: Acute Qualifiers: Obesity type affecting : unspecified obesity Qualified Code(s): O99.210 - Obesity complicating , unspecified trimester Category: Medical Code(s): O99.210 - Obesity complicating , unspecified trimester Plan 1. She has increased blood pressure and has remained elevated in labor and delivery. 2. She is 37 weeks gestational age and as a result of her increased blood pressure, proteinuria and slightly elevated LFTs we will go ahead and induce her labor. 3. We will start with Cytotec later this evening and then start oxytocin and first thing in the morning. 4. She was known to have a large for gestational age infant however her pelvis seems adequate. The baby seems to be well down in the pelvis. We will expect a vaginal delivery. 5. We did discuss the risks of as well as the slight risk for lung immaturity and the need for specialized care if the baby has breathing difficulties.
[2025-02-08 19:22] VITALS: BP 146/82; PULSE 75; RESP 16; TEMP 36.9; O2SAT 100
[2025-02-08 23:15] VITALS: BP 160/83; PULSE 78
[2025-02-08 23:31] VITALS: BP 135/60; PULSE 73
[2025-02-09] VITALS (34 sets, daily range): BP systolic 106–174; BP diastolic 51–98; PULSE 65–95; RESP 14–19; TEMP 36.8–37.1; O2SAT 99–100
[2025-02-09] MEDS: DEXTROSE 5%-LACTATED RINGERS 1,000 ML 125 ML IV ×3 (05:02→23:07)
[2025-02-09] MEDS: OXYTOCIN/RINGERS LACTATE 30 UNITS/500 ML BAG IV (05:10)
[2025-02-09 08:06] LABS: Microscopic, Urine URINE MICROSCOPIC (MICROSCOPIC)
[2025-02-09 08:12] LABS: Bilirubin,Urine Negative (Negative); Color,Urine YELLOW (Yellow); Glucose,Urine (UA) Negative (Negative); Ketones,Urine Negative (Negative); Leukocyte Esterase,Urine 1+ (Negative); PH,Urine 7.0 (5.0-8.5); Protein,Urine Negative (Negative); Specific Gravity, Urine 1.020 (1.005-1.030); Urobilinogen,Urine 0.2 EU/dl (0.2)
[2025-02-09 08:32] LABS: Bacteria,Urine 2+ /lpf; RBC,Urine Occasional #/hpf (0-3)
--- NOTE | 2025-02-09 10:12 | P.PN_ITS ---
Labor Note Subjective: Date: 02/09/25 Time: 08:30 regular contraction Objective: NST:: Reactive Contractions:: every 2-3 minutes Cervical Dilation:: 2 Effacement:: 50% Station: -3 Membranes: intact Fetus: Monitoring?: Yes monitoring type:: External Assessment: Labor progressing?: No Cephalopelvic disproportion?: No Plan: Anesthesia for epidural?: No Continue to labor down?: Yes Plan for ?: No Continue to monitor?: Yes Additional information:: She had 1 dose of Cytotec overnight and we started oxytocin this morning. She has really not changed her cervix. We will see how she does for the rest of the morning and if she does not jacquard loom card changer the next 4 hours we will consider stopping oxytocin and starting Cytotec overnight. She does not want to have a . Blood pressure is labile and we will give her a dose of IV labetalol.
[2025-02-09] MEDS: LABETALOL 5MG/ML 20ML MDV 20 MG IV (10:19)
--- NOTE | 2025-02-09 11:25 | EXP.LABOR.NO ---
Labor Note Subjective: Date: 02/09/25 Time: 11:25 irregular contractions Comment:: It at 6 without any regular contractions and not feeling any pain or contractions. No cervical change. Strongly desires a vaginal delivery Objective: Contractions:: infrequent Cervical Dilation:: 2 Effacement:: 50% Station: -3 Membranes: intact Fetus: Monitoring?: Yes monitoring type:: External Assessment: Labor progressing?: No Plan: Additional information:: #Gestational hypertension - Urine protein to creatinine ratio is 0.14. - Platelets: 154 - Creatinine within normal limits - AST/ALT: 51/34. Previously AST was 26 on 12/29/2024 - Uric acid within normal limits - Continue to repeat PIH labs - Patient has had severe range blood pressure and received 1 dose of IV labetalol 20 mg. Continue to follow closely follow labetalol protocol with blood pressure checks every 15 minutes x 1 hour followed by every 30 minutes x 1 hour followed by hourly x 4 hours - Continue to follow closely with consideration for magnesium if persistent severe range blood pressures #Early labor - Patient still making any cervical change and needs additional support being - Carmen balloon placed with vaginal Cytotec for cervical ripening. Placed with ease patient and fetus tolerated well - Continue to monitor closely - Reactive strip/category 1 It is worth mentioning that this patient had a 1 hour GTT that was: 184 3-hour GTT: 74/144/155/114. On 01/31/2025 a growth ultrasound was completed at 36 weeks and 0 days gestation which gave a weight of 3494 g, 7 pounds 11 ounces, 97th percentile. BPD: 95%, HC: 65%, AC: Greater than 98%, FL: 12%. BPP was 8 out of 8. Fluid was appropriate with an RENEE of 13 cm and MVP of 5 cm
[2025-02-09 13:05] LABS: Hematocrit 32.5 % (37.0-47.0); Hemoglobin 11.0 g/dL (12.2-16.2); Immature Granulocytes % 0.8 %; Mean Corpuscular HGB Conc 33.8 g/dL (31.8-35.4); Mean Corpuscular Hemoglobin 32.2 pg (27.0-31.2); Mean Corpuscular Volume 95.0 fl (81-99); Nucleated Red Blood Cells % 0 %; Platelet Count 147 K/mm3 (142-424); Red Blood Count 3.42 M/mm3 (4.20-5.40); Red Cell Distribution Width-SD 47.8 fL; White Blood Count 8.3 K/mm3 (4.8-10.8)
[2025-02-09 13:08] LABS: Alanine Aminotransferase 39 U/L (12-78); Albumin Level 3.3 g/dl (3.5-5.0); Albumin/Globulin Ratio 1.2 (1.1-1.8); Alkaline Phosphatase 170 U/L (38-126); Aspartate Amino Transferase 48 U/L (14-36); Bilirubin,Total 0.5 mg/dl (0.2-1.3); Blood Urea Nitrogen 6 mg/dl (7-17); Carbon Dioxide 22 mmol/L (22.0-30.0); Chloride 105 mmol/L (98-107); Creatinine Clearance Estimated 273 mL/min (50-200); Creatinine,Serum 0.50 mg/dl (0.52-1.04); Estimated Glomerular Filt Rate 144 ml/min (>60); GFR (African American) 174 ML/MIN (>60); Globulin 2.7 g/dL (1.3-3.2); Sodium 135 mmol/L (136-145); Total Protein,Serum 6.0 g/dl (6.3-8.2)
[2025-02-09 13:21] LABS: Anion Gap 11.5 mEq/L (5-15); Potassium 3.5 mmoL/L (3.5-5.1)
[2025-02-09] MEDS: LABETALOL 5MG/ML 20ML MDV 40 MG IV (13:21)
[2025-02-09 13:25] LABS: Calcium 8.6 mg/dl (8.4-10.2); Glucose 115 mg/dl (74-100)
[2025-02-09] MEDS: LACTATED RINGERS 1000ML 1,000 ML 500 ML IV (14:03)
--- NOTE | 2025-02-09 14:51 | EXP.ANES.CKL ---
[facility] Disclaimer: The information contained in this section may have been updated after the patient was seen, as this information can be updated by other users. Medical History LGA (large for gestational age) fetus affecting mother, antepartum Maternal obesity affecting , antepartum SAB (spontaneous ) Swelling of lower extremity during Surgical History [place] teeth extracted Family History No significant family history Social History Smoking Status: Former smoker alcohol intake: former substance use type: denies use current occupational status: employed Travel in the last 8 weeks?: None [facility] Anesthesia Checklist Patient Identification Patient Identification: Arm Band and Verbal (Name & ) Structural Data Admitted From: Home Planned Operative Procedure/s: Labor Epidural Verified Documents: Surgical Consent NPO Status Verified Time NPO: 00:00 Chart Verification Results Verified: CBC Additional verifications Patient : Yes Anesthesia Reactions: No Airway Assessment Mallampati Score:: Class II C-Spine Mobility Assessed: Yes TMJ Mobility Assessed: Yes Dentition: Good Dentition Neurological Assessment Level of Consciousness: Awake and Alert Hx Seizures: No Numbness or tingling in extremities: No Anesthesia Plan Anesthesia Risk discussed: Yes Anesthesia Plan: Verified ASA Class: II Anesthesia Type: Epidural
--- NOTE | 2025-02-09 15:08 | EXP.LABOR.NO ---
Labor Note Subjective: Date: 02/09/25 Time: 15:08 regular contraction Objective: NST:: Reactive Contractions:: every 2-3 minutes Cervical Dilation:: 6 Effacement:: 90% Station: -2 Membranes: artificially ruptured Fetus: Monitoring?: Yes monitoring type:: External Assessment: Labor progressing?: Yes Cephalopelvic disproportion?: No Plan: Anesthesia for epidural?: Yes Continue to labor down?: Yes Plan for ?: No Continue to monitor?: Yes Start pushing?: No Comment:: She has made good progress since we installed the Carmen balloon. I ruptured her membranes and there was a small amount of clear fluid. The cervix has not changed 6 cm and is very soft and 90% effaced.
[2025-02-09 15:34] LABS: RPR W/RFX Titers Nonreactive (Nonreactive)
[2025-02-09 16:55] LABS: Microscopic, Urine URINE MICROSCOPIC (MICROSCOPIC)
--- NOTE | 2025-02-09 17:05 | EXP.LABOR.NO ---
Labor Note Subjective: Date: 02/09/25 Time: 17:05 regular contraction Objective: NST:: Reactive Contractions:: every 2-3 minutes Cervical Dilation:: 5-6 Effacement:: 75% Station: -3 Membranes: artificially ruptured Fetus: Monitoring?: Yes monitoring type:: Internal and External Assessment: Labor progressing?: No Cephalopelvic disproportion?: No Plan: Anesthesia for epidural?: Yes Continue to labor down?: Yes Plan for ?: No Continue to monitor?: Yes Start pushing?: No Comment:: She really has not made much progress since her last examination. She has some thickening of the cervix. The cervix is not dilated anymore than previously. Baby's head is still high and it feels like the pelvis is somewhat narrow. I did insert an IUPC. We will continue to monitor the contractions and the progress. At this point in time the baby is stable and patient is stable. We will see if we can get the cervix to dilate some more and have the baby's head come down more. She is known to have an LGA baby.
[2025-02-09 17:38] LABS: Bilirubin,Urine Negative (Negative); Color,Urine YELLOW (Yellow); Glucose,Urine (UA) Negative (Negative); Ketones,Urine Negative (Negative); Leukocyte Esterase,Urine Negative (Negative); PH,Urine 7.5 (5.0-8.5); Protein,Urine Negative (Negative); Specific Gravity, Urine 1.010 (1.005-1.030); Urobilinogen,Urine 0.2 EU/dl (0.2)
[2025-02-09 18:13] LABS: Bacteria,Urine Trace /lpf; RBC,Urine Occasional #/hpf (0-3); Squamous Epithelial Cell,Urine Occasional #/hpf (0-5)
[2025-02-10] VITALS (35 sets, daily range): BP systolic 124–176; BP diastolic 60–88; PULSE 71–99; RESP 15–18; TEMP 36.7; O2SAT 99–100
[2025-02-10] MEDS: OXYTOCIN/RINGERS LACTATE 30 UNITS/500 ML BAG 999 UNITS IV (02:04)
--- NOTE | 2025-02-10 02:37 | P.PCN_ITS ---
Delivery Note Delivery Date:: 02/10/25 Delivery Time:: 01:59 Anesthesia Type: Epidural Was labor medically induced?: Yes Induction method: per misoprostol protocol Gestational age (weeks): 37 Infant delivered prior to 39 weeks?: Yes Justification for early elective delivery:: Gestational Hypertension Infant Gender: Male at 1 minute: 9 at 5 minutes: 9 Delivery Procedure:: Preoperative diagnosis: 1. at 37 completed this weeks gestation, vertex 2. Gestational hypertension 3. Suspected LGA 4. Maternal obesity 5. Rh positive 6. GBS negative Postoperative diagnosis: 1. at 37 completed this weeks gestation, vertex 2. Gestational hypertension 3. Suspected LGA 4. Maternal obesity 5. Rh positive 6. GBS negative EBL: 350mL Specimen: 1. Cord blood 2. Placenta Findings: 1. Liveborn viable male : undecided. Apgars 9/9 at 1 and 5 minutes respectively. Weight 8 pounds 8 ounces as 2. 2nd degree midline perineal laceration and a periurethral and periclitoral laceration Complications: None Procedure: Nonoperative spontaneous vaginal delivery Nereida Holland is a 29-year-old G2, P0 who was sent to labor and delivery for induction of labor secondary to gestational hypertension. She received 1 dose of Cytotec and was started on Pitocin. When she was started on Pitocin her cervix was still not favorable and her Pitocin was increased but she never felt any pain and her contractions were irregular. The infant was still too high for AROM. Pitocin was discontinued a cervical ripening balloon was placed and vaginal Cytotec was initiated. Cervical ripening balloon was expelled and the patient was noted to be 5 to 6 cm. Shortly after AROM occurred around 1300 and she was noted to be 6/90/-2. The patient progressed to complete. The was noted to be in JOCELYN position. With effective maternal pushing there was a nonoperative spontaneous vaginal delivery at 0159. There was no nuchal cord. The anterior left shoulder delivered, followed by the posterior shoulder without dystocia. There is a compound presentation with the posterior shoulder. The body and lower extremities delivered without difficulty. The infant was crying following delivery. The was placed on the maternal abdomen and greater than 3 m inutes were appreciated for delayed cord clamping. The umbilical cord was doubly clamped and cut. Cord blood was collected and sent for routine testing. The placenta delivered with cord traction and suprapubic contertraction. Pitocin was started. The uterus was firm and bleeding was minimal. The perineum, vaginal hoff, cervix, and paraurethral area were inspected thoroughly. There was a second-degree midline perineal laceration. There was also a periclitoral and periurethral laceration. 1% Lidocaine, 10ml, was injected during the repair due to patient discomfort. The laceration was repaired in the usual fashion using 2- 0 Vicryl suture. The laceration was hemostatic. The periurethral laceration was repaired after placing a Carmen catheter to identify the urethra and reapproximating with interrupted sutures until hemostasis was achieved. The cervix and vaginal hoff were inspected and noted to be hemostatic. This concluded the delivery. The patient was counseled regarding the events of the delivery and repair. The patient tolerated the delivery well. All counts were correct by nursing. Mother and infant were doing well and bonding upon my leaving the delivery room. Laceration:: vaginal Placental Delivery Description: Spontaneous
[2025-02-10] MEDS: ACETAMINOPHEN 500MG TAB 1000 MG PO ×4 (03:56→21:01)
[2025-02-10] MEDS: WITCH HAZEL 40 PADS/BOX 1 EACH TP (03:57)
[2025-02-10] MEDS: IBUPROFEN 400 MG TABLET 800 MG PO ×3 (03:57→18:19)
[2025-02-10] MEDS: BENZOCAINE-MENTHOL SPRAY 56GM CAN TP (03:58)
[2025-02-10 06:26] LABS: Hematocrit 31.4 % (37.0-47.0); Hemoglobin 10.4 g/dL (12.2-16.2); Immature Granulocytes % 0.7 %; Mean Corpuscular HGB Conc 33.1 g/dL (31.8-35.4); Mean Corpuscular Hemoglobin 31.9 pg (27.0-31.2); Mean Corpuscular Volume 96.3 fl (81-99); Nucleated Red Blood Cells % 0 %; Platelet Count 145 K/mm3 (142-424); Red Blood Count 3.26 M/mm3 (4.20-5.40); Red Cell Distribution Width-SD 49.4 fL; White Blood Count 13.8 K/mm3 (4.8-10.8)
[2025-02-10] MEDS: LABETALOL 20MG/4ML SYRINGE 20 MG IV (09:10)
[2025-02-10] MEDS: MAGNESIUM SULFATE IN WATER 4 GM/50 ML PIGGYBACK IV (09:13)
[2025-02-10] MEDS: MAGNESIUM SULFATE IN WATER 20 GM/500 ML IV.SOLN IV (09:33)
[2025-02-10] MEDS: LACTATED RINGERS 1000ML 1,000 ML 75 ML IV (09:33)
[2025-02-10] MEDS: LABETALOL 100MG TABLET 200 MG PO ×3 (09:54→21:01)
--- NOTE | 2025-02-10 11:35 | P.PN_ITS ---
Subjective *Date: 02/10/25 *Time: 16:37 Interval history: Nereida Holland is a very pleasant 29-year-old G2, P1 day #1 following a at 37+ weeks gestation secondary to gestational hypertension. Her blood pressures have continued to creep up and magnesium was started for eclampsia prophylaxis. She was started on p.o. labetalol as well -Reports pain is well-controlled -Reports she is tolerating p.o. without nausea or vomiting. -Reports her lochia is scant. - Undecided on contraception -She is breast-feeding her male -Ambulating, voiding difficulty or dysuria. Denies chest pain shortness of breath or pain in her legs. No further complaints at this time. Exam Data for Last 24 hours Vital signs and Labs for Last 24 Hours: Temp Pulse Resp BP Pulse Ox O2 Del Method 98.7 F 81 15 134/72 99 Room Air 02/09/25 19:47 02/10/25 10:34 02/10/25 10:34 02/10/25 10:34 02/10/25 10:34 02/10/25 10:34 Laboratory Results - last 24 hr 02/08/25 12:11: RPR w/Rflx to Titer Nonreactive 02/09/25 12:50: WBC 8.3, RBC 3.42 L, Hgb 11.0 L, Hct 32.5 L, MCV 95.0, MCH 32.2 H, MCHC 33.8, RDW 13.8, Plt Count 147, MPV 13.5 H, Neut % (Auto) 75.3, Lymph % (Auto) 15.8, Shelby % (Auto) 6.5, Eos % (Auto) 1.2, Baso % (Auto) 0.4, Neut # (Auto) 6.2, Lymph # (Auto) 1.3, Shelby # (Auto) 0.5, Eos # (Auto) 0.1, Baso # (Auto) 0.0, Sodium 135 L, Potassium 3.5, Chloride 105, Carbon Dioxide 22, Anion Gap 11.5, BUN 6 L, Creatinine 0.50 L, Estimated Creat Clear 273, Estimated GFR 144, Est GFR ( Amer) 174, Glucose 115 H, Calcium 8.6, Total Bilirubin 0.5, AST 48 H, ALT 39, Alkaline Phosphatase 170 H, Total Protein 6.0 L, Albumin 3.3 L, Globulin 2.7, Albumin/Globulin Ratio 1.2 02/09/25 16:45: Urine Color Yellow, Urine Appearance Clear, Urine pH 7.5, Ur Specific [place] 1.010, Urine Protein Negative, Urine Glucose (UA) Negative, Urine Ketones Negative, Urine Blood Negative, Urine Nitrate Negative, Urine Bilirubin Negative, Urine Urobilinogen 0.2, Ur Leukocyte Esterase Negative, Urine RBC Occasional, Urine WBC 3-5, Ur Squamous Epith Cells Occasional, Urine Bacteria Trace, Urine Creatinine 49, Urine Total Protein 17.0 H 02/10/25 06:10: WBC 13.8 H D, RBC 3.26 L, Hgb 10.4 L, Hct 31.4 L, MCV 96.3, MCH 31.9 H, MCHC 33.1, RDW 14.0, Plt Count 145, MPV 13.4 H, Neut % (Auto) 81.5 H, Lymph % (Auto) 9.6 L, Shelby % (Auto) 7.8, Eos % (Auto) 0.1, Baso % (Auto) 0.3, Neut # (Auto) 11.2 H, Lymph # (Auto) 1.3, Shelby # (Auto) 1.1 H, Eos # (Auto) 0.0, Baso # (Auto) 0.0 I & O for Last 24 hours: Intake & Output 02/07/25 02/08/25 02/09/25 02/10/25 23:59 23:59 23:59 23:59 Intake Total 2816.667 / 2816.667 1015.00 / 1015.00 Output Total 800 / 800 600 / 600 Balance / 415.00 / 415.00 Weight 234 lb Narrative: General: patient is alert oriented in no acute distress and responds appropriately to questions. Appears to be in minimal pain. Sitting up in the chair and doing well HEENT: NCAT, EOMI, moist mucous membranes, neck supple with full ROM Cardiovascular: RRR +S1/S2, no murmurs or rubs Pulmonary: Clear to auscultation bilaterally, nonlabored breathing, symmetric chest rise Abdominal: Fundus at the umbilicus, firm, and tenderness appropriate for the period. Extremities: trace edema, no tenderness or cyanosis noted Skin: Normal turgor, intact, warm. Negative for erythema, pallor, petechia, or lesions Neurologic: Negative for sensory or motor deficit Psychiatric: Normal affect, normal thought process, good judgment and insight, no depression or anxious mood appreciated. Constitutional Constitutional: no acute distress *Routine HEENT Exam Head: Present normocephalic Eye: Present EOMI and PERRL ENT: Present mucous membranes moist *Routine Neck Exam Neck: Present supple; Absent lymphadenopathy *Routine Respiratory Exam Respiratory: Present CTA bilaterally *Routine Cardiovascular Exam Cardiovascular: Present RRR *Routine Abdominal Exam Abdominal: Present soft and normoactive bowel sounds; Absent tenderness *Routine Extremities Exam Extremities: Present edema; Absent cyanosis or clubbing Comments: Plus 2 out of 4 bilateral patellar reflexes *Routine Skin Exam Skin: Present warm; Absent rash *Routine Neurological Exam Neurological: Present alert and oriented X3 Assessment and Plan *Assessment and plan (1) Gestational hypertension affecting first : Status: Acute Category: Medical Code(s): O13.9 - Gestational [-induced] hypertension without significant proteinuria, unspecified trimester (2) LGA (large for gestational age) fetus affecting mother, antepartum: Status: Acute Qualifiers: Fetus number: single or unspecified fetus Qualified Code(s): O36.60X0 - Maternal care for excessive growth, unspecified trimester, not applicable or unspecified Category: Medical Code(s): O36.60X0 - Maternal care for excessive growth, unspecified trimester, not applicable or unspecified (3) Maternal obesity affecting , antepartum: Status: Acute Qualifiers: Obesity type affecting : unspecified obesity Qualified Code(s): O99.210 - Obesity complicating , unspecified trimester Category: Medical Code(s): O99.210 - Obesity complicating , unspecified trimester (4) (normal spontaneous vaginal delivery): Status: Acute Category: Medical Code(s): O80 - Encounter for full-term uncomplicated delivery (5) Preeclampsia: Status: Acute Category: Medical Code(s): O14.90 - Unspecified pre-eclampsia, unspecified trimester Plan Stable. PPD#1 s/p -Doing well. VSS. Serial lochia and fundal checks. -Continue with perineal ice packs for discomfort -Hemoglobin: 11.0--> 10.4 -O+/antibody negative -, male infant -Contraception: undecided -Follow-up 2 weeks for routine visit -Dispo: home in 3 days pending mother/infant status Gestational hypertension - Continue to monitor blood pressures closely - Continue magnesium - Strict I's and O's - Continue routine magnesium checks - Initiated labetalol p.o. 200 mg 3 times daily Suspected gestational diabetes - Encouraged a 2-hour 75 g glucose challenge test Patient reports that at discharge she plans to travel back to [place]. Discussed the increased risk of type 2 diabetes and increased risk of cardiovascular disease with her diagnoses. Encourage patient to establish care with an MILL ROLL OPERATOR as well as a PCP at discharge. Patient will remain inpatient for a minimum of 3 days / 72 hours for strict blood pressure monitoring since she will be traveling immediately at discharge
[2025-02-10 13:35] LABS: Magnesium 3.6 mg/dl (1.6-2.3)
[2025-02-10] MEDS: PRENATAL MULTIVITAMIN W/IRON 1 EACH PO (16:07)
[2025-02-10 17:27] LABS: Magnesium 4.2 mg/dl (1.6-2.3)
[2025-02-10] MEDS: MAGNESIUM SULFATE IN WATER 20 GM/500 ML IV.SOLN 3 GM IV (18:21)
[2025-02-10 19:25] LABS: Magnesium 4.8 mg/dl (1.6-2.3)
[2025-02-10] MEDS: SENNA 8.6MG TABLET 8.6 MG PO (21:01)
[2025-02-10 22:39] LABS: Magnesium 4.9 mg/dl (1.6-2.3)
[2025-02-11] VITALS (12 sets, daily range): BP systolic 129–147; BP diastolic 58–82; PULSE 67–82; RESP 14–18; TEMP 36.9–37.2; O2SAT 96–100
[2025-02-11] MEDS: MAGNESIUM SULFATE IN WATER 20 GM/500 ML IV.SOLN 3 GM IV (02:45)
[2025-02-11] MEDS: LACTATED RINGERS 1000ML 1,000 ML 50 ML IV (02:47)
[2025-02-11] MEDS: IBUPROFEN 400 MG TABLET 800 MG PO ×3 (02:48→18:24)
[2025-02-11 02:54] LABS: Magnesium 5.4 mg/dl (1.6-2.3)
[2025-02-11] MEDS: ACETAMINOPHEN 500MG TAB 1000 MG PO ×3 (04:31→17:01)
--- NOTE | 2025-02-11 08:31 | P.PN_ITS ---
Subjective *Date: 02/11/25 *Time: 08:31 Interval history: Nereida Holland is a very pleasant 29-year-old G2, P1 day #2 following a at 37+ weeks gestation secondary to gestational hypertension. Her blood pressures have have been better controlled on the magnesium and wtih labetalol 200mg TID -Reports pain is well-controlled -Reports she is tolerating p.o. without nausea or vomiting. -Reports her lochia is scant. -Undecided on contraception -She is breast-feeding her male , does not desire circumcision -Ambulating, voiding difficulty or dysuria. Denies chest pain shortness of breath or pain in her legs. No further complaints at this time. Exam Data for Last 24 hours Vital signs and Labs for Last 24 Hours: Temp Pulse Resp BP Pulse Ox O2 Del Method 98.7 F 67 16 142/73 H 98 Room Air 02/11/25 04:30 02/11/25 07:13 02/11/25 07:13 02/11/25 07:13 02/11/25 06:10 02/11/25 06:10 Laboratory Results - last 24 hr 02/09/25 07:50: Urine Color Yellow, Urine Appearance Clear, Urine pH 7.0, Ur Specific [place] 1.020, Urine Protein Negative, Urine Glucose (UA) Negative, Urine Ketones Negative, Urine Blood Negative, Urine Nitrate Negative, Urine Bilirubin Negative, Urine Urobilinogen 0.2, Ur Leukocyte Esterase 1+ A, Urine RBC Occasional, Urine WBC 3-5, Ur Squamous Epith Cells 5-10, Urine Bacteria 2+ 02/10/25 13:15: Magnesium 3.6 H 02/10/25 17:05: Magnesium 4.2 H D 02/10/25 19:00: Magnesium 4.8 H D 02/10/25 22:00: Magnesium 4.9 H 02/11/25 02:13: Magnesium 5.4 H D I & O for Last 24 hours: Intake & Output 02/08/25 02/09/25 02/10/25 02/11/25 23:59 23:59 23:59 23:59 Intake Total 2816.667 / 2816.667 1992.500 / 1992.500 561.0 / 561.0 Output Total 800 / 800 2700 / 2700 1250 / 1250 Balance / 2015.7 -707.500 / -707.500 -689.0 / -689.0 Weight 234 lb Microbiology Reports for the Last 24 Hours: Microbiology 02/09/25 07:50 Urine,Clean Catch Urine Culture - Preliminary Gram Positive Cocci Narrative: General: patient is alert oriented in no acute distress and responds appropr iately to questions. HEENT: NCAT, EOMI, moist mucous membranes, neck supple with full ROM Cardiovascular: RRR +S1/S2, no murmurs or rubs Pulmonary: Clear to auscultation bilaterally, nonlabored breathing, symmetric chest rise Abdominal: Fundus below the umbilicus, firm, and tenderness appropriate for the period. Extremities: trace edema, no tenderness or cyanosis noted Skin: Normal turgor, intact, warm. Negative for erythema, pallor, petechia, or lesions Neurologic: Negative for sensory or motor deficit Psychiatric: Normal affect, normal thought process, good judgment and insight, tearful today on exam but doing okay. She hasnt slept much and is tired Constitutional Constitutional: no acute distress *Routine HEENT Exam Head: Present normocephalic Eye: Present EOMI and PERRL ENT: Present mucous membranes moist *Routine Neck Exam Neck: Present supple; Absent lymphadenopathy *Routine Respiratory Exam Respiratory: Present CTA bilaterally *Routine Cardiovascular Exam Cardiovascular: Present RRR *Routine Abdominal Exam Abdominal: Present soft and normoactive bowel sounds; Absent tenderness *Routine Extremities Exam Extremities: Present edema; Absent cyanosis or clubbing Comments: Plus 2 out of 4 bilateral patellar reflexes *Routine Skin Exam Skin: Present warm; Absent rash *Routine Neurological Exam Neurological: Present alert and oriented X3 Assessment and Plan *Assessment and plan (1) Gestational hypertension affecting first : Status: Acute Category: Medical Code(s): O13.9 - Gestational [-induced] hypertension without significant proteinuria, unspecified trimester (2) LGA (large for gestational age) fetus affecting mother, antepartum: Status: Acute Qualifiers: Fetus number: single or unspecified fetus Qualified Code(s): O36.60X0 - Maternal care for excessive growth, unspecified trimester, not applicable or unspecified Category: Medical Code(s): O36.60X0 - Maternal care for excessive growth, unspecified trimester, not applicable or unspecified (3) Maternal obesity affecting , antepartum: Status: Acute Qualifiers: Obesity type affecting : unspecified obesity Qualified Code(s): O99.210 - Obesity complicating , unspecified trimester Category: Medical Code(s): O99.210 - Obesity complicating , unspecified trimester (4) (normal spontaneous vaginal delivery): Status: Acute Category: Medical Code(s): O80 - Encounter for full-term uncomplicated delivery (5) Preeclampsia: Status: Acute Category: Medical Code(s): O14.90 - Unspecified pre-eclampsia, unspecified trimester Plan Stable. PPD#2 s/p -Doing well. VSS. Serial lochia and fundal checks. -Continue with perineal ice packs for discomfort -Hemoglobin: 11.0--> 10.4 -O+/antibody negative -, male infant -Contraception: undecided -Follow-up 2 weeks for routine visit -Dispo: home in 3 days pending mother/infant status Gestational hypertension - Continue to monitor blood pressures closely - Continue magnesium, DC at 0913 02/11/25 - Strict I's and O's - Continue routine magnesium checks - continue labetalol p.o. 200 mg 3 times daily Suspected gestational diabetes - Encouraged a 2-hour 75 g glucose challenge test Gram pos cocci on prelim U Cx - initiated abx (Ceftriaxone and clindamycin) will cont to monitor and follow for susceptibility Patient reports that at discharge she plans to travel back to [place]. Discussed the increased risk of type 2 diabetes and increased risk of cardi ovascular disease with her diagnoses. Encourage patient to establish care with an BOILERMAKER MECHANIC as well as a PCP at discharge. Patient will remain inpatient for a minimum of 3 days / 72 hours for strict blood pressure monitoring since she will be traveling immediately at discharge
[2025-02-11] MEDS: LABETALOL 100MG TABLET 200 MG PO ×3 (09:20→21:42)
[2025-02-11] MEDS: CEFTRIAXONE 1 GM 1 GM in 0.9 % SODIUM CHLORIDE 50 ML IV (09:21)
[2025-02-11] MEDS: SENNA 8.6MG TABLET 8.6 MG PO (09:22)
[2025-02-11] MEDS: CLINDAMYCIN PHOSPHATE/D5W 900 MG/50 ML PIGGYBACK 100 MG IV ×2 (09:49→17:01)
[2025-02-11] MEDS: PRENATAL MULTIVITAMIN W/IRON 1 EACH PO (18:24)
[2025-02-12] MEDS: CLINDAMYCIN PHOSPHATE/D5W 900 MG/50 ML PIGGYBACK 100 MG IV ×2 (01:11→09:02)
[2025-02-12] MEDS: ACETAMINOPHEN 500MG TAB 1000 MG PO ×2 (01:43→08:58)
[2025-02-12] MEDS: IBUPROFEN 400 MG TABLET 800 MG PO ×2 (01:44→08:57)
[2025-02-12 04:10] VITALS: BP 144/71; PULSE 77; RESP 18; TEMP 36.5; O2SAT 99
[2025-02-12] MEDS: LABETALOL 100MG TABLET 200 MG PO ×2 (08:57→13:20)
[2025-02-12 09:19] VITALS: BP 145/80; PULSE 73; RESP 16; TEMP 37.3; O2SAT 100
--- NOTE | 2025-02-12 13:06 | EXP.DC.SUM ---
General Admission date:: 02/08/25 Discharge date: 02/12/25 HPI HPI HPI: She is a 29-year-old 2 para 0 at 37+ weeks gestational age. She was seen in the office today with increased blood pressure. She was sent to labor and delivery and her blood pressure remained elevated. It is mostly in [id number] range over 90-100 range. She denies headache, scotomata or epigastric pain. Laboratory investigations revealed a normal uric acid with slightly elevated AST. Platelets are normal. She has 1+ proteinuria. As a result of this we are admitting her for induction of labor. Her cervix is 2 cm 50% and Station -2. Hospital Course Hospital Course Hospital Course: Nereida Holland is a pleasant 29-year-old G2, P1 day #2 from a normal spontaneous vaginal delivery. She delivered a live viable male on 02/10/2025 at 0 159. Apgars were 9 and 9 at 1 and 5 minutes respectively. Infant weighed 8 pounds and 8 ounces at delivery. was complicated by large for gestational age, and gestational hypertension with severe features/preeclampsia. She received magnesium for 24 hours . She also was diagnosed with a urinary tract infection and received antibiotics on postoperative day #1 for UTI. She plans to travel to [place] at the time of discharge. She has done well and has remained afebrile with her at her hospitalization. She is eating and drinking and ambulating. She is breast and bottle feeding. Her lochia is normal. She has O Rh+ blood, she is rubella immune and was group B streptococcus negative. She will be discharged home to follow-up with Dr. Winston in 2 weeks time, she may follow-up with an FINANCIAL SERVICES AUDITOR in [place] as this is where she plans to live and then follow-up with Dr. Winston at 6 to 8 weeks . She will continue with her vitamins and iron. She will take ibuprofen as well. She was given the usual instructions with respect to limiting her activity, driving and sexual activity. She was given instructions with respect to wound care. Her condition on discharge is stable and improved. Given her plans for immediate travel she was counseled extensively with her family members present and everyone voiced understanding of reasons to return to care and her high risk condition given that she had preeclampsia. Exam Data for Last 24 hours Vital signs and Labs for Last 24 Hours: Temp Pulse Resp BP Pulse Ox O2 Del Method 99.2 F 73 16 145/80 H 100 Room Air 02/12/25 09:19 02/12/25 09:19 02/12/25 09:19 02/12/25 09:19 02/12/25 09:19 02/12/25 09:19 Laboratory Results - last 24 hr 02/08/25 15:31: Crossmatch (AHG) See Detail I & O for Last 24 hours: Intake & Output 02/09/25 02/10/25 02/11/25 02/12/25 23:59 23:59 23:59 23:59 Intake Total 2816.667 / 2816.667 1992.500 / 1944.149 2255.9 / 1255.9 100 / 100 Output Total 800 / 800 2700 / 2700 1250 / 1250 Balance 2016.667 / 2015.667 -707.500 / -707.500 5.9 / 5.9 100 / 100 Microbiology Reports for the Last 24 Hours: Microbiology 02/09/25 07:50 Urine,Clean Catch Urine Culture - Final Enterococcus faecalis Narrative: General: patient is alert oriented in no acute distress and responds appropriately to questions. HEENT: NCAT, EOMI, moist mucous membranes, neck supple with full ROM Cardiovascular: RRR +S1/S2, no murmurs or rubs Pulmonary: Clear to auscultation bilaterally, nonlabored breathing, symmetric chest rise Abdominal: Fundus below the umbilicus, firm, and tenderness appropriate for the period. Extremities: trace edema, no tenderness or cyanosis noted Skin: Normal turgor, intact, warm. Negative for erythema, pallor, petechia, or lesions Neurologic: Negative for sensory or motor deficit Psychiatric: Normal affect, normal thought process, good judgment and insight, tearful today on exam but doing okay. She hasnt slept much and is tired Constitutional Constitutional: no acute distress *Routine HEENT Exam Head: Present normocephalic Eye: Present EOMI and PERRL ENT: Present mucous membranes moist *Routine Neck Exam Neck: Present supple; Absent lymphadenopathy *Routine Respiratory Exam Respiratory: Present CTA bilaterally *Routine Cardiovascular Exam Cardiovascular: Present RRR *Routine Abdominal Exam Abdominal: Present soft and normoactive bowel sounds; Absent tenderness *Routine Extremities Exam Extremities: Present edema; Absent cyanosis or clubbing Comments: Plus 2 out of 4 bilateral patellar reflexes *Routine Skin Exam Skin: Present warm; Absent rash *Routine Neurological Exam Neurological: Present alert and oriented X3 Results Data Completed and Pending Labs on day of discharge: Labs from last 24 hours 02/08/25 15:31 Crossmatch (AHG) See Detail DS: Diagnosis Discharge Diagnosis (1) Gestational hypertension affecting first : Status: Acute Code(s): O13.9 - Gestational [-induced] hypertension without significant proteinuria, unspecified trimester (2) LGA (large for gestational age) fetus affecting mother, antepartum: Status: Acute Code(s): O36.60X0 - Maternal care for excessive growth, unspecified trimester, not applicable or unspecified Qualifiers: Fetus number: single or unspecified fetus Qualified Code(s): O36.60X0 - Maternal care for excessive growth, unspecified trimester, not applicable or unspecified (3) Maternal obesity affecting , antepartum: Status: Acute Code(s): O99.210 - Obesity complicating , unspecified trimester Qualifiers: Obesity type affecting : unspecified obesity Qualified Code(s): O99.210 - Obesity complicating , unspecified trimester (4) (normal spontaneous vaginal delivery): Status: Acute Code(s): O80 - Encounter for full-term uncomplicated delivery (5) Preeclampsia: Status: Acute Code(s): O14.90 - Unspecified pre-eclampsia, unspecified trimester Meds Home Medications and Allergies Home Medications ?Medication ?Instructions ?Recorded ?Confirmed ?Type vits no.126-ferrous fum 1 tab PO DAILY 12/05/24 02/09/25 History 28 mg iron-folic acid 800 mcg tablet (Classic ) acetaminophen 500 mg tablet 500 mg PO Q6H PRN fever or pain 02/12/25 Rx #30 tabs ferrous sulfate 325 mg (65 mg 325 mg PO DAILY #30 tabs 02/12/25 Rx iron) tablet,delayed release ibuprofen 800 mg tablet 800 mg PO Q8H PRN pain #60 tabs 02/12/25 Rx labetalol 200 mg tablet 200 mg PO TID #90 tabs 02/12/25 Rx sennosides 8.6 mg tablet (Senna 8.6 mg PO BIDP PRN Constipation 02/12/25 Rx Lax) #60 tabs New Prescriptions to Start Prescriptions: acetaminophen Don,Corina ferrous sulfate Don,Corina ibuprofen Don,Corina labetalol Don,Corina sennosides [Senna Lax] Corina Ochoa Allergies Allergy/AdvReac Type Severity Reaction Status Date / Time No Known Allergies Allergy Verified 02/08/25 10:50 Discharge Plan Disposition Patient Disposition: Home, Self-Care Discharge Order Discharge Orders: Discharge Order (Routine); Ordered 02/12/25 Ordered By: Corina Ochoa Follow up Plan Follow up with: Nella Winston DO [Staff Physician, FINANCIAL SERVICES AUDITOR] - 2 weeks Prescriptions/Medication Reconciliation: New acetaminophen 500 mg tablet 500 mg PO Q6H PRN (Reason: fever or pain) Qty: 30 3RF ferrous sulfate 325 mg (65 mg iron) tablet,delayed release (DR/EC) 325 mg PO DAILY Qty: 30 3RF sennosides [Senna Lax] 8.6 mg Tablet 8.6 mg PO BIDP PRN (Reason: Constipation) Qty: 60 2RF ibuprofen 800 mg tablet 800 mg PO Q8H PRN (Reason: pain) Qty: 60 2RF labetalol 200 mg tablet 200 mg PO TID Qty: 90 2RF Continued Classic 28 mg iron- 800 mcg tablet 1 tab PO DAILY Discontinued docusate sodium 100 mg capsule 100 mg PO DAILY aspirin [Adult Aspirin Regimen] 81 mg tablet,delayed release (DR/EC) 81 mg PO DAILY Problem Reconciliation Problems Reviewed?: Yes Patient Discharge Instructions ACTIVITY: Continue current activity DIET: regular diet Additional Instructions: Congratulations on the delivery of your sweet baby boy. It is my privilege to be a part of your FINANCIAL SERVICES AUDITOR team and I am so thankful I could be a part of your special day. Discharge: -Take 800 mg Ibuprofen every 8 hours as needed for pain. You can also take 500-1000 mg of Tylenol in between doses, every 6-8 hours. -Colace can be taken 1-2 times per day as you need to soften your stool. Make sure to drink at least 8 cups of water per day. -Iron supplements can make you constipated. You can take iron tablets every other day if constipation is too bad. -Nothing in the vagina for 6 weeks - no intercourse, douching, tampons. No tub baths or swimming pools. -Do not lift greater than 20pounds for 2 weeks, this is the equivalent of 2 gallons of milk. -Reasons to return to L&D or call On-Call doctor - fever (greater than 100.4) - heavy vaginal bleeding (soaking through 1 pad in less than 2 hours or passing clots that are egg sized) - vaginal discharge (malodorous and/or purulent) - severe headaches, leg tenderness/edema, or any other symptoms that warrant immediate medical attention. depression/blues - Normal to feel anxious/overwhelmed for first 2 weeks - Talk to your doctor if: anxiety lasts over 2 weeks, trouble bonding with baby, withdrawing from other family members, thoughts of harming yourself or others Blood pressure and preeclampsia instructions 1. Please take your blood pressure twice daily. 2. Please call if greater than 2 values are higher than: 150 systolic (the top number) or 100 diastolic (the bottom number). 3. Please go to the emergency room or labor and delivery triage if any value is higher than: 160 systolic (the top number) or 110 diastolic (the bottom number). 4. Please call if unrelenting headache (does not go away with rest or Tylenol or ibuprofen), changes in vision (spots, floaters, flashes of light), chest pain, shortness of breath, or right upper quadrant (liver) abdominal pain. Corina Ochoa DO [facility] [phone] *Nothing in the Vagina for 6 weeks* *No strenuous activity* *No heavy lifting* *No tub baths until okay's by MD* Patient Instructions: Depression, Hemorrhage, DI for Labor and Delivery, Vaginal , DI for Pre-eclampsia, [facility] Post Discharge Instructions Print Language: Ukrainian Providers Primary Care Provider: Provider,Referral Admit Provider: Jose Blackmon Attending Provider: Jose Blackmon
[2025-02-12 13:20] VITALS: BP 147/75; PULSE 87; RESP 16; TEMP 37.1; O2SAT 98
== END 2025-02-12 15:45 | disposition home or self-care (01) | DRG 806 ==
LOC: OBOUT 13:59 → OB 14:00
PROVIDERS: Obstetrics & Gynecology; Admitting Provider Nurse Practitioner Obstetrics & Gynecology; Visit Provider Nurse Practitioner Obstetrics & Gynecology
DX: O14.14 Severe pre-eclampsia complicating childbirth (principal); N39.0 Urinary tract infection, site not specified; Z37.0 Single live birth; Z3A.37 37 weeks gestation of pregnancy; O36.63X0 Maternal care for excessive fetal growth, third trimester, not applicable or unspecified; O99.214 Obesity complicating childbirth; O62.2 Other uterine inertia; O32.6XX0 Maternal care for compound presentation, not applicable or unspecified; O70.1 Second degree perineal laceration during delivery; O71.82 Other specified trauma to perineum and vulva; O86.20 Urinary tract infection following delivery, unspecified; Z23 Encounter for immunization; Z87.891 Personal history of nicotine dependence; Z79.82 Long term (current) use of aspirin; Z79.899 Other long term (current) drug therapy
CPT/HCPCS: 36415; 51702; 59025; 80053; 81001; 82570; 83735; 84156; 84550; 85025; 85384; 85610; 85730; 86592; 86850; 87086; 87088; 87186; 94761; 99212; C1758; G0463; J0696; J0736; J1920; J2003; J2795; J3010; J3475; J7120; J7121